=== PATIENT | female | born 2000 | race Caucasian/White ===

== ENCOUNTER 2021-04-29 16:25 | Emergency (ER) | payer BC, SELFPAY ==
--- NOTE | ~2021-04-29 | XR_ITS ---
EXAMINATION: XR chest 2V DATE: 04/29/2021 16:55 INDICATION: Chest pain with exhalation. TECHNIQUE: Frontal and lateral views of the chest were obtained. COMPARISON: None. FINDINGS: There are mild airspace opacities in the lower lung zones. No pleural effusion or pneumotho rax. The heart size is normal. IMPRESSION: 1. Mild airspace opacities in the lower lung zones, consistent with atelectasis versus pneumonia. Reviewed, dictated and finalized at location [facility]
[2021-04-29 16:31] VITALS: BP 153/96; PULSE 88; RESP 20; TEMP 36.8; O2SAT 100
[2021-04-29 16:36] VITALS: BP 153/96; PULSE 88; RESP 20; TEMP 36.8; O2SAT 100
--- NOTE | 2021-04-29 16:55 | ED.URI ---
HPI - URI/Sore Throat General Chief Complaint: Upper Respiratory Infection Stated Complaint: upper respiratory Time Seen by Provider: 04/29/21 16:55 Source: patient and family History of Present Illness HPI Narrative: patient presents 4 weeks post covid and continues to have a cough and is worried that she may have pneumonia. no shortness of breath and no chest pain. Has not tried anything over the counter for her cough. MD elicited complaint: cough Related Data Allergies Allergy/AdvReac Type Severity Reaction Status Date / Time No Known Allergies Allergy Verified 02/17/19 14:18 Review of Systems Review of Systems: CONSTITUTIONAL: Denies chills, or sweats. Reports fever and generalized body aches EYES: Denies visual changes, redness, or discharge. ENT: Denies otalgia. Reports nasal congestion runny nose and sore throat CARDIOVASCULAR: Denies chest pain, palpitations, or edema. RESPIRATORY: Denies dyspnea. Reports occasional cough GASTROINTESTINAL: Denies abdominal pain, nausea, vomiting, or diarrhea. GENITOURINARY: Denies dysuria or hematuria. SKIN: Denies rash or itching. MUSCULOSKELETAL: Denies back pain, joint pain, or myalgia. Reports generalized body aches NEUROLOGIC: Denies headache, numbness, or weakness. PSYCHIATRIC: Denies anxiety or depression. Allergic/Immunologic: Comments: At time of signature, agree with nursing past medical, surgical, social and family history. There is no relevant family history pertinent to the presenting complaint [facility] Past Medical History Medical History (Updated 04/29/21 @ 17:21 by YUMIKO Anne) Strep pharyngitis Exam Narrative: The patient is a well-developed, well-nourished in no acute distress. SKIN: Skin is warm and dry without erythema, swelling or exudate. There is good turgor. No tenting. HEAD: Atraumatic. Normocephalic. No temporal or scalp tenderness. EYES: Moist and bright. Sclera and conjunctivae normal. No discharge. PERRLA. Extraocular motions intact. Gross visual acuity intact. EARS: Pinna is normal shape and contour. Clear external auditory canals. TM pearly osorio with good cone of light, no erythema or suppuration. Bilateral cerumen noted no gross hearing deficit. NOSE: pink, moist mucosa with good air movement. Clear rhinorrhea without nasal flaring. Septum midline. Mouth: moist mucous membranes. THROAT; mild erythema noted to posterior oropharynx with moderate postnasal drainage. Without exudate or ulceration.. Uvula midline. Normal movement of soft palate. NECK: Supple and nontender with full range of motion without discomfort. No meningeal signs. LUNGS: Equal and bilateral breath sounds without wheezes, rales or rhonchi. CHEST: The chest wall is without retractions or use of accessory muscles. HEART: Has a regular rate and rhythm without murmur, gallops, click or rub. ABDOMEN: Soft, nontender with positive active bowel sounds. No rebound tenderness. EXTREMITIES: Without cyanosis, clubbing or edema. Equal 2+ distal pulses and 2 second capillary refill noted. NEUROLOGIC: alert, active, . The patient moves all extremities with normal muscle strength. Normal muscle tone is noted. Normal coordination is noted. NO focal neurological findings noted. Course Course Level of Care: Express Care Visit Vital Signs Vital signs: Vital Signs Temperature 36.8 C 04/29/21 16:31 Pulse Rate 88 04/29/21 16:31 Respiratory Rate 20 04/29/21 16:31 Blood Pressure 153/96 H 04/29/21 16:31 Pulse Oximetry 100 04/29/21 16:31 Temperature 36.8 C 04/29/21 16:36 Pulse Rate 88 04/29/21 16:36 Respiratory Rate 20 04/29/21 16:36 Blood Pressure 153/96 H 04/29/21 16:36 Pulse Oximetry 100 04/29/21 16:36 Addressed elevated BP today. Today's blood pressure higher than recommended range. Discussed importance of follow -up with PCP and possible skilled nursing effects/cardiovascular events related to HTN. Currently patient denies headache, dizziness, vision changes,
== END 2021-04-29 17:24 | disposition home or self-care (01) ==
PROVIDERS: Emergency Provider Nurse Practitioner Family
DX: J06.9 Acute upper respiratory infection, unspecified (principal); R05.9 Cough, unspecified; J18.9 Pneumonia, unspecified organism; Z86.16 Personal history of COVID-19
CPT/HCPCS: 71046; 99213; G0463

== ENCOUNTER 2021-06-01 17:34 | Emergency (ER) | payer BC, SELFPAY ==
[2021-06-01 17:39] VITALS: BP 143/85; PULSE 100; RESP 16; TEMP 36.8; O2SAT 98
--- NOTE | 2021-06-01 17:47 | ED.URI ---
HPI - URI/Sore Throat General Chief Complaint: Upper Respiratory Infection Stated Complaint: Sore Throat Time Seen by Provider: 06/01/21 17:56 Source: patient and RN notes reviewed Mode of arrival: ambulatory Limitations: no limitations History of Present Illness HPI Narrative: 21-year-old female presents concern for sore throat and painful swallowing that started 2 days ago. Reports some mild abdominal discomfort and headache. Reports her son tested positive for strep throat earlier this week. She denies vomiting, diarrhea, fever, nausea, cough. Reports nasal congestion and rhinorrhea. MD elicited complaint: cough and sore throat Related Data Allergies Allergy/AdvReac Type Severity Reaction Status Date / Time No Known Allergies Allergy Verified 06/01/21 17:59 Review of Systems Review of Systems: CONSTITUTIONAL: Denies malaise, chills, sweats, or fever. EYES: Denies visual changes, redness, or discharge. ENT: Reports rhinorrhea, congestion, sore throat. Denies sinus pain, otalgia CARDIOVASCULAR: Denies chest pain, palpitations, or edema. RESPIRATORY: Reports cough. Denies dyspnea. GASTROINTESTINAL: Denies nausea, vomiting, diarrhea SKIN: Denies rash or itching. MUSCULOSKELETAL: Denies myalgia. NEUROLOGIC: Reports headache. All systems reviewed & are unremarkable except as noted in HPI and below PMFSH Past Medical History Medical History (Updated 06/01/21 @ 18:14 by Sally Spring NP) Strep pharyngitis Comments At time of signature, agree with nursing past medical, surgical, social and family history. There is no relevant family history pertinent to the presenting complaint Exam Narrative: GENERAL: Well-appearing, well-nourished, and in no acute distress. HEAD: Normocephalic EYES: PERRLA, conjunctivae clear ENT: Nares clear, clear discharge. Mucous membranes moist. TM pearly couch with dull light reflex bilaterally; no tragal tenderness. Oropharynx erythematous without lesions. Tonsils enlarged and without exudate, no drooling, no hoarseness, no trismus, uvula midline. NECK: Supple. No lymphadenopathy CHEST: Clear to auscultation, breath sounds equal. No wheezing, rhonchi, rales, or stridor. No respiratory distress, speaks in full sentences. HEART: Regular rate and rhythm. No murmur heard. SKIN: Warm, dry, no rash. NEURO: Alert and oriented x3. PSYCH: Normal mood and affect Course Course Emergency Course: Patient is aware of diagnosis, understands and agrees to treatment plan. Anticipatory guidance given. Patient agrees to follow-up as directed and is aware of reasons to seek care at the emergency department. Portions of this record may have been created with voice recognition software Level of Care: Express Care Visit Vital Signs Vital signs: Vital Signs Temperature 98.2 F 06/01/21 17:39 Pulse Rate 100 06/01/21 17:39 Respiratory Rate 16 06/01/21 17:39 Blood Pressure 143/85 H 06/01/21 17:39 Pulse Oximetry 98 06/01/21 17:39 Temperature 98.2 F 06/01/21 17:39 Pulse Rate 100 06/01/21 17:39 Respiratory Rate 16 06/01/21 17:39 Blood Pressure 143/85 H 06/01/21 17:39 Pulse Oximetry 98 06/01/21 17:39 Reviewed. Patient has been instructed to follow up with her primary care provider within the next week regarding her elevated blood pressure today. MDM - URI/Sore Throat MDM Narrative Medical decision making narrative: Differential diagnosis considered: Andersen virus, strep pharyngitis, allergic rhinitis, upper respiratory tract infection, sinusitis, rhinosinusitis, nasopharyngitis. viral pharyngitis, otitis media, otitis externa, pneumonia, bronchitis, viral cough syndrome, viral syndrome, and influenza. Exam findings show no acute concerns or changes; patient is non-toxic appearing and is in no distress. Patient is appropriate for outpatient treatment and follow-up. Lab Data Attestation: I reviewed the patient's lab results. Critical Care Time Critical Care Time Critical Care Time:
== END 2021-06-01 18:18 | disposition home or self-care (01) ==
PROVIDERS: Emergency Provider Nurse Practitioner
DX: J03.90 Acute tonsillitis, unspecified (principal); Z20.818 Contact with and (suspected) exposure to other bacterial communicable diseases
CPT/HCPCS: 87081; 87880; 99213; G0463

== ENCOUNTER 2021-12-04 15:53 | Emergency (ER) | payer BC, SELFPAY ==
[2021-12-04 15:59] VITALS: BP 150/81; PULSE 73; RESP 16; TEMP 36.6; O2SAT 100
--- NOTE | 2021-12-04 16:06 | ED.NAVMDI ---
HPI - Nausea/Vomiting/Diarrhea General Chief complaint: Abdominal Pain Stated complaint: cramping and diarrhea Time Seen by Provider: 12/04/21 15:55 Source: patient Mode of arrival: ambulatory Limitations: no limitations History of Present Illness HPI Narrative: Ms. Koroma is a 21-year-old female patient presenting to the clinic today with complaints of abdominal cramping and diarrhea 2-1/2 weeks. She reports that she has had only 1 diarrheal stool this morning. She has intermittent abdominal cramping that only lasts approximately 3 minutes that comes and goes in waves. She also is reporting some nausea without vomiting. Denies any blood being in her stool. Denies any fever or chills. Last menstrual period was October 19 and she missed her period last month. She is concerned that she may be . Last sexual intercourse was November 01 per patient. Related Data Allergies Allergy/AdvReac Type Severity Reaction Status Date / Time No Known Allergies Allergy Verified 12/04/21 16:11 Review of Systems Review of Systems: Pertinent positives per HPI. Patient denies any fever, chills, rash, headache, visual changes, dizziness, cough, runny nose, sore throat, shortness of breath, chest pain, palpitations, nausea, vomiting, constipation, or any urinary issues. [facility] Past Medical History Medical History Strep pharyngitis Comments At the time of my signature, I reviewed and agree with the nursing past medical, surgical, social, and family history. There is no relevant family history pertinent to the patient complaint. Exam Narrative: General: Well-developed,obese, in no apparent distress. Head: Normocephalic, atraumatic. Cardio: Regular rate and rhythm, s1 and s2 normal, no murmur appreciated. Resp: Clear to auscultation bilaterally, no rhonchi, rales, wheezing or rubs. Abdomen: Soft, pliable, bowel sounds present in all quadrants, non-tender to palpation, no organomegly, no CVAT tenderness. Course Course Emergency Course: Portions of this record may have been created with voice recognition software. Level of Care: Express Care Visit Vital Signs Vital signs: Vital Signs Temperature 36.6 C 12/04/21 15:59 Pulse Rate 73 12/04/21 15:59 Respiratory Rate 16 12/04/21 15:59 Blood Pressure 150/81 H 12/04/21 15:59 Pulse Oximetry 100 12/04/21 15:59 Oxygen Delivery Room Air 12/04/21 15:59 Temperature 36.6 C 12/04/21 15:59 Pulse Rate 73 12/04/21 15:59 Respiratory Rate 16 12/04/21 15:59 Blood Pressure 150/81 H 12/04/21 15:59 Pulse Oximetry 100 12/04/21 15:59 Oxygen Delivery Room Air 12/04/21 15:59 Vital signs reviewed MDM - Nausea/Vomiting/Diarrhea MDM Narrative Medical decision making narrative: At the time of visit patient is resting comfortably on exam table. UA is negative for any infection or blood, UA test negative in the clinic as well. I suspect the patient has acute diarrhea, nausea, and abdominal cramping. She is nontender at this time and nontoxic-appearing. I will give her a prescription for Zofran for nausea and discussed use of Imodium as needed for diarrhea. Supportive measures were discussed with the patient she voiced understanding of discharge instructions and agrees to treatment plan. Differential Diagnosis Differential diagnosis: Likely traveler's diarrhea, gastroenteritis, drug-induced nausea and vomiting, dehydration and other (Acute diarrhea) Lab Data Labs: UCG Bedside Result Negative Reference Range: Negative Urine Bilirubin Negative Reference Range: Negative Urine Ketone Negative Reference Range: Negative Urine Specific [place] 1.030 Reference
== END 2021-12-04 16:35 | disposition home or self-care (01) ==
PROVIDERS: Emergency Provider Nurse Practitioner Family
DX: R10.9 Unspecified abdominal pain (principal); R11.0 Nausea; R19.7 Diarrhea, unspecified
CPT/HCPCS: 81003; 81025; 99213; G0463

== ENCOUNTER 2022-07-14 16:15 | Emergency (ER) | payer BC, SELFPAY ==
[2022-07-14 16:21] VITALS: BP 148/86; PULSE 90; RESP 20; TEMP 36.6; O2SAT 100
--- NOTE | 2022-07-14 16:50 | ED.ABDPAIN ---
HPI - Abdominal Pain General Chief Complaint: Abdominal Pain Stated Complaint: Abdominal Pain Time Seen by Provider: 07/14/22 16:50 Source: patient, RN notes reviewed and old records reviewed Mode of arrival: ambulatory Limitations: no limitations History of Present Illness HPI narrative: 22 year old female presents to [facility] care with complaints of abdominal pain in middle abdomen for the past 2 days and she reports that she has had some diarrhea 3 days ago. Patient reports that she has not had menses since May and is not taking any control. 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 She reports that she is not sleeping well and has been very upset over his . MD elicited complaint: abdominal pain Onset (ago): day(s) (2-3 days) Pain Consistency: intermittent Location: periumbilical Severity: moderate Quality: cramping Migration to: no migration Related Data Allergies Allergy/AdvReac Type Severity Reaction Status Date / Time No Known Allergies Allergy Verified 07/14/22 16:32 Review of Systems Review of Systems: CONSTITUTIONAL: Denies fever, chills, or sweats. ENT: Denies rhinorrhea, congestion, sore throat, or otalgia. CARDIOVASCULAR: Denies chest pain, palpitations, or edema. RESPIRATORY: Denies cough or dyspnea. GASTROINTESTINAL: Reports middle abdominal umbilical region, no nausea, vomiting,positive for diarrhea episode. GENITOURINARY: Denies dysuria or hematuria. SKIN: Denies rash or itching. MUSCULOSKELETAL: Denies back pain, joint pain, or myalgia. NEUROLOGIC: Denies headache, numbness, or weakness.reports emotional stress and not sleeping well. All systems reviewed & are unremarkable except as noted in HPI and below PMFSH Past Medical History Medical History COVID-19 04/23 Strep pharyngitis Social History Social History Smoking status: Never smoker Alcohol intake: current Alcohol use details: rare social Substance use type: does not use Living arrangements: with family Gender identity (if verbalized by the patient): Female Comments At time of signature, agree with nursing past medical, surgical, social and family history. There is no relevant family history pertinent to the presenting complaint Exam Narrative: GENERAL: Well-appearing, well-nourished, obese and in no acute distress. HEAD: Normocephalic, atraumatic. EYES: PERRLA, conjunctivae clear, and EOMI. ENT: Nares clear. Mucous membranes moist. Oropharynx without edema, erythema, or lesions. Tonsils not enlarged and without exudate. NECK: Supple. No lymphadenopathy CHEST: Speaks in full sentences. No respiratory distress.SAO2 100% on room air HEART: Regular rate and rhythm. ABDOMEN: Soft, flat, nondistended. No guarding, rebound tenderness, or rigid. No pulsatilla masses. Bowel sounds present in all four quadrants. No organomegaly. Negative Garcias?s sign.mild periumbilical tenderness, denies any radiation of pain to right lower abdomen, No Supra public tenderness or distension. Good femoral pulses bilaterally. No hernia noted. No scars or surface trauma. SKIN: Warm, dry, no rash. NEURO:? Alert and oriented x3. PSYCH: Normal mood and affect, tearful and anxious Course Course Emergency Course: Patient is aware of diagnosis, understands and agrees to treatment plan.? Anticipatory guidance given.? Patient agrees to follow-up as directed and is aware of reasons to seek care at the emergency department. Portions of this record may have been created with voice recognition software Level of Care: Express Care Visit Vital Signs Vital signs: Vital Signs Temperature 36.6 C 07/14/22 16:21 Pulse Rate 90 07/14/22 16:21 Respiratory Rate 20 07/14/22 16:21 Blood Pr
== END 2022-07-14 17:35 | disposition home or self-care (01) ==
PROVIDERS: Emergency Provider Registered Nurse
DX: N91.2 Amenorrhea, unspecified (principal); F43.9 Reaction to severe stress, unspecified; R10.33 Periumbilical pain
CPT/HCPCS: 81003; 81025; 99213; G0463

== ENCOUNTER 2024-06-06 12:31 | Emergency (ER) | payer OTHER, SELFPAY ==
--- NOTE | ~2024-06-06 | XR_ITS ---
EXAMINATION: XR chest 2V DATE: 06/06/2024 13:17 INDICATION: Chest pain TECHNIQUE: PA and lateral views of the chest were obtained. COMPARISON: Chest radiograph dated 04/29/2021 FINDINGS: The lungs are clear with no focal airspace opacities, pulmonary edema, pleural effusion or pneumothor ax. The cardiomediastinal silhouette is normal. Mild thoracic spondylosis. IMPRESSION: 1. No acute cardiopulmonary disease. Reviewed, dictated and finalized at location B. EM SOFTWARE DEVELOPER
--- NOTE | 2024-06-06 12:32 | ECG_ITS ---
Test Date: 2024-06-06 12:45:32 Measurements Intervals [place] Rate: 79 P: 35 MS: 146 QRS: 30 QRSD: 94 T: 37 QT: 368 QTc: 423 Interpretive Statements SINUS RHYTHM WITH SINUS ARRHYTHMIA NORMAL ELECTROCARDIOGRAM No previous ECG available for comparison Electronically Signed On 06-07-2024 15:23:04 [employer]OGEN [employer] by Mahamed De La Rosa M.D.
[2024-06-06 12:34] VITALS: BP 141/84; PULSE 76; RESP 19; TEMP 36.9; O2SAT 98
--- OUTSIDE RECORDS SUMMARY | 2024-06-06 12:51 | XMS_ITS | Data Portability ---
Author Organization [facility] [place] Address [address] [place] [address] [place] [address] Assessment Encounter Date Assessment Date Assessment LastModified by Organization Details LastModified Time 04/04/2024 04/04/2024 Patient is ___weeks . Discussed plan. Not available 04/04/2024 16:25:43 04/30/2024 04/30/2024 Patient is ___weeks . Discussed plan. Not available 04/30/2024 17:23:15 Plan of Treatment Reminders Order Date Submit Date Provider Last Modified By Organization Details Last Modified Time Details Appointments U/S OB GROWTH 2024 03:00P M ULTRASOUND Not available Not available Not available Lab None recorde d. Referral None recorde d. Procedures None recorde d. Surgeries None recorde d. Imaging US, obstetr ic, 2nd or 3rd trimest er 2024 025 [email or web address] [place], [address], [place], [address], 05/06/2024 23:03:15 US, obstetr ic, limited 2023 024 [email or web address] [place], [facility] [address], [place], [address], 03/10/2024 21:11:42 Medication Orders None recorde d. Patient TargetsNo targets recorded. Patient InstructionsNo instructions recorded. Reason for Referral None Reported. Results Created Date Observation Date Name Description Value Unit Range Abnormal Flag Note LastModifiedBy Organization Detail LastModifiedTime 03/10/20 24 03/10/2024 [UNIT Y] ANEUP LOIDY NIPT fraction 4.0% normal Not Available [facility] [address], [place], [address], 03/10/2024 14:56:12 03/10/20 24 03/10/2024 [UNIT Y] ANEUP LOIDY NIPT sex chromosome aneuploidy NOT DETECT ED normal Not Available [facility] [address], [place], [address], 03/10/2024 14:56:12 03/10/20 24 03/10/2024 [UNIT Y] ANEUP LOIDY NIPT monosomy X LOW RISK <1 in 10,000 normal Not Available [facility] [address], [place], [address], 03/10/2024 14:56:12 03/10/20 24 03/10/2024 [UNIT Y] ANEUP LOIDY NIPT trisomy 13 LOW RISK <1 in 10,000 normal Not Available [facility] [address], [place], [address], 03/10/2024 14:56:12 03/10/20 24 03/10/2024 [UNIT Y] ANEUP LOIDY NIPT trisomy 18 LOW RISK <1 in 10,000 normal Not Available [facility] [address], [place], [address], 03/10/2024 14:56:12 03/10/20 24 03/10/2024 [UNIT Y] ANEUP LOIDY NIPT trisomy 21 LOW RISK <1 in 10,000 normal Not Available [facility] [address], [place], [address], 03/10/2024 14:56:12 03/10/20 24 03/10/2024 [UNIT Y] ANEUP LOIDY NIPT sex MALE normal Not Available [facility] [address], [place], [address], 03/10/2024 14:56:12 03/10/20 24 03/10/2024 [UNIT Y] ANEUP LOIDY NIPT gestation SINGLE TON normal Not Available [facility] [address], [place], [address], 03/10/2024 14:56:12 03/10/20 24 03/10/2024 [UNIT Y] ANEUP LOIDY NIPT for detailed report, see pdf See PDF normal Not Available [facility] [address], [place], [address], 03/10/2024 14:56:12 03/16/20 24 03/16/2024 [UNIT Y] LANA Mcguire sickle cell disease/beta -thalassemia /hemoglobino pathies carrier screen NEGATI VE normal Not Available [facility] [address], [place], [address], 03/16/2024 10:52:21 03/16/20 24 03/16/2024 [UNIT Y] LANA Mcguire alpha-thalas semia carrier screen NEGATI VE normal Not Available [facility] [address], [place], [address], 03/16/2024 10:52:21 03/16/20 24 03/16/2024 [UNIT Y] LANA Mcguire cystic fibrosis carrier screen NEGATI VE normal Not Available [facility] [address], [place], [address], 03/16/2024 10:52:21 03/16/20 24 03/16/2024 [UNIT Y] LANA Mcguire spinal muscular atrophy carrier screen NEGATI VE 2 SMN1 copies , SNP not presen t normal Not Available [facility] [address], [place], [address], 03/16/2024 10:52:21 03/16/20 24 03/16/2024 [UNIT Y] LANA Mcguire for detailed report, see pdf See PDF normal Not Available [facility] [address], [place], [address], 03/16/2024 10:52:21 03/05/20 24 03/05/2024 CBC W/DIF F WBC 9.1 10'3/ uL 3.5-10 .5 Not Available [facility] (Lab) [address], [place], [address], 03/06/2024 13:28:07 03/05/20 24 03/05/2024 CBC W/DIF F RBC 5.09 10'6/ uL (based on docume nted legal sex) 3.80-5 .20 Not Available [facility] (Lab) [address], [place], [address], 03/06/2024 13:28:07 03/05/20 24 03/05/2024 CBC W/DIF F HGB 12.8 g/dL (based on docume nted legal sex) 11.6-1 5.4 Not Available [facility] (Lab) [address], [place], [address], 03/06/2024 13:28:07 03/05/20 24 03/05/2024 CBC W/DIF F HCT 39.5 % (based on docume nted legal sex) 34.0-4 5.0 Not Available [facility] (Lab) [address] [place], [address], 03/06/2024 13:28:07 03/05/20 24 03/05/2024 CBC W/DIF F MCV 77.6 fL 80.0-9 9.0 low Not Available [facility] (Lab) [address] [place], [address], 03/06/2024 13:28:07 03/05/20 24 03/05/2024 CBC W/DIF F MCH 25.1 pg 27.0-3 4.0 low Not Available [facility] (Lab) [address] [place], [address], 03/06/2024 13:28:07 03/05/20 24 03/05/2024 CBC W/DIF F MCHC 32.4 g/dL 32.0-3 5.5 Not Available [facility] (Lab) [address], [place], [address], 03/06/2024 13:28:07 03/05/20 24 03/05/2024 CBC W/DIF F RDW 15.0 % 11.0-1 5.0 Not Available [facility] (Lab) [address] [facility], [place], [address], 03/06/2024 13:28:07 03/05/20 24 03/05/2024 CBC W/DIF F plt 241 10'3/ uL 150-40 0 Not Available [facility] (Lab) [address] [facility], [place], [address], 03/06/2024 13:28:07 03/05/20 24 03/05/2024 CBC W/DIF F MPV 12.4 fL 8.8-12 .1 high Not Available [facility] (Lab) [address], [place], [address], 03/06/2024 13:28:07 03/05/20 24 03/05/2024 CBC W/DIF F NRBC's 0.0 % 0.0 Not Available [facility] (Lab) [address] [facility], [place], [address], 03/06/2024 13:28:07 03/05/20 24 03/05/2024 CBC W/DIF F absolute NRBCs 0.0 10'3/ uL no refere nce range establ ished Not Available [facility] (Lab) [address] [facility], [place], [address], 03/06/2024 13:28:07 03/05/20 24 03/05/2024 CBC W/DIF F neutrophils 69.1 % 34.0-7 3.0 Not Available [facility] (Lab) [address] [facility], [place], [address], 03/06/2024 13:28:07 03/05/20 24 03/05/2024 CBC W/DIF F lymphocytes 24.2 % 15.0-5 0.0 Not Available [facility] (Lab) [address] [facility], [place], [address], 03/06/2024 13:28:07 03/05/20 24 03/05/2024 CBC W/DIF F monocytes 4.8 % 1.0-15 .0 Not Available [facility] (Lab) [address] [facility], [place], [address], 03/06/2024 13:28:07 03/05/20 24 03/05/2024 CBC W/DIF F eosinophils 1.3 % 0.0-8. 0 Not Available [facility] (Lab) [address] [facility], [place], [address], 03/06/2024 13:28:07 03/05/20 24 03/05/2024 CBC W/DIF F basophils 0.4 % 0.0-2. 0 Not Available [facility] (Lab) [address] [facility], [place], [address], 03/06/2024 13:28:07 03/05/20 24 03/05/2024 CBC W/DIF F immature granulocytes 0.2 % no define d refere nce range Not Available [facility] (Lab) [address] [facility], [place], [address], 03/06/2024 13:28:07 03/05/20 24 03/05/2024 CBC W/DIF F absolute neutrophils 6.3 10'3/ uL 1.5-8. 0 Not Available [facility] (Lab) [address] [place], [address], 03/06/2024 13:28:07 03/05/20 24 03/05/2024 CBC W/DIF F absolute lymphocytes 2.2 10'3/ uL 1.0-4. 0 Not Available [facility] (Lab) [address] [facility], [place], [address], 03/06/2024 13:28:07 03/05/20 24 03/05/2024 CBC W/DIF F absolute monocytes 0.4 10'3/ uL 0.2-1. 0 Not Available [facility] (Lab) [address] [facility], [place], [address], 03/06/2024 13:28:07 03/05/20 24 03/05/2024 CBC W/DIF F absolute eosinophils 0.1 10'3/ uL 0.0-0. 6 Not Available [facility] (Lab) [address] [facility], [place], [address], 03/06/2024 13:28:07 03/05/20 24 03/05/2024 CBC W/DIF F absolute basophils 0.0 10'3/ uL 0.0-0. 3 Not Available [facility] (Lab) [address] [facility], [place], [address], 03/06/2024 13:28:07 03/05/20 24 03/05/2024 CBC W/DIF F absolute immature granulocytes 0.0 10'3/ uL 0.00-0 .10 2023 3:05 AM: P indic ates parti al resul ts on a panel have been relea sed. Addit ional resul ts will follo w. 2023 3:05 AM: This resul t has been final verif ied. No addit ional or loredo ed resul ts are expec valerie. Not Available [facility] (Lab) [address] [facility], [place], [address], 03/06/2024 13:28:07 03/05/20 24 03/05/2024 HEMOG LOBIN A1C hemoglobin A1C 5.6 % 0-5.6 The Ameri can [employer] [facility] [employer] i[employer] n recom mends that a prima ry goal of thera py shoul d be a HBA1C of < 7% and that physi cians charlie d reeva luate the treat ment regim en in patie nts with HBA1C value s consi stent ly > 8%. <5.7% Odalys l 5.7 - 6.4% Incre ased risk for diabe brinda >=6.5 % Diagn ostic of diabe brinda <7.0% Goal of thera py >8.0% Actio n sugge sted Not Available [facility] (Lab) [address] [facility], [place], [address], 03/06/2024 13:28:08 03/05/20 24 03/05/2024 TYPE/ RH/SC REEN ABO/Rh type O POS Not Available [facility] (Lab) [address] [facility], [place], [address], 03/06/2024 13:28:09 03/05/20 24 03/05/2024 TYPE/ RH/SC REEN antibody screen NEG Not Available [facility] (Lab) [address] [facility], [place], [address], 03/06/2024 13:28:09 03/05/20 24 03/05/2024 TYPE/ RH/SC REEN exp date 2023 23:59 Not Available [facility] (Lab) [address] [place], [address], 03/06/2024 13:28:09 03/05/20 24 03/05/2024 HEPAT ITIS C ANTIB ASHLEY SCREE N, REFLE X TO CONFI RMATI ON hepatitis C antibody Non-re active non-re active Antib odies to HCV Not Detec valerie, does not exclu de the possi bilit y of expos ure to HCV. Not Available [facility] (Lab) [address] , [place], [address], 03/06/2024 13:28:09 03/05/20 24 03/05/2024 HEPAT ITIS B SURFA CE ANTIG EN hepatitis B surface antigen Non-re active non-re active This assay was perfo rmed using [employer] ratio n reage nts and test kits. Value s obtai jonathan with other assay metho ds or kits canno t be used inter loredo eably . Not Available [facility] (Lab) [address] [facility], [place], [address], 03/06/2024 13:28:10 03/05/20 24 03/05/2024 HIV 1/2 ANTIG EN/AN TIBOD Y, REFLE X CONFI RMATI ON HIV antigen/anti body Nonrea ctive nonrea ctive HIV-1 antig en and HIV-1 /HIV- 2 antib odies were not detec valerie. No labor atory evide nce of HIV infec tion. Not Available [facility] (Lab) [address] [facility], [place], [address], 03/06/2024 13:28:10 03/05/20 24 03/05/2024 RPR SCREE N, REFLE X TITER /CONF IRMAT ION RPR screen Nonrea ctive nonrea ctive Not Available [facility] (Lab) [address] [facility], [place], [address], 03/06/2024 13:28:11 03/05/20 24 03/05/2024 CT/GC AND TRICH OMONA S VAGIN BRENDA (RRNA ), URINE chlamydia trachomatis, PCR Negati ve negati ve Not Available [facility] (Lab) [address] [facility], [place], [address], 03/07/2024 03:06:15 03/05/20 24 03/05/2024 CT/GC AND TRICH OMONA S VAGIN BRENDA (RRNA ), URINE neisseria gonorrhoeae, PCR Negati ve negati ve Not Available [facility] (Lab) [address] [facility], [place], [address], 03/07/2024 03:06:15 03/05/20 24 03/05/2024 CT/GC AND TRICH OMONA S VAGIN BRENDA (RRNA ), URINE trichomonas vaginalis ribosomal RNA (rrna) Positi ve negati ve abnormal Not Available [facility] (Lab) [address] [facility], [place], [address], 03/07/2024 03:06:15 03/05/20 24 03/05/2024 CULTU RE: URINE result report SEE RESULT S BELOW Test: Cultu re: Urine Speci men Sourc e: Urine - Clean Catch Speci men Type: Urine Speci men Date: 2023 1734 Resul t Date: 2023 0201 Resul t Statu s: Final resul t Abnor mal: No Resul ting Lab: [facility] [address] [facility] [address] Tel: CULTU RE ----- ----- ----- --- Cultu re resul t (>=3 organ isms prese nt) indic ates possi ble conta minat ion. Repea t cultu re if sympt oms indic ate. Not Available [facility] (Lab) [address] [facility], [place], [address], 03/07/2024 03:06:15 03/05/20 24 03/05/2024 drug scree n, urine Amphetamines : negati ve Not Available [place] [address], [place], [address], 03/05/2024 18:03:01 03/05/20 24 03/05/2024 drug scree n, urine Cannabinoids : negati ve Not Available [place] [address], [place], [address], 03/05/2024 18:03:01 03/05/20 24 03/05/2024 drug scree n, urine Cocaine: negati ve Not Available [place] [address], [place], [address], 03/05/2024 18:03:01 03/05/20 24 03/05/2024 drug scree n, urine Opiates: negati ve Not Available [place] [address], [place], [address], 03/05/2024 18:03:01 03/05/20 24 03/05/2024 drug scree n, urine Phenocyclidi ne: negati ve Not Available [place] [address], [place], [address], 03/05/2024 18:03:01 03/05/20 24 03/05/2024 drug scree n, urine Barbiturates : negati ve Not Available [place] [address], [place], [address], 03/05/2024 18:03:01 03/05/20 24 03/05/2024 drug scree n, urine Benzodiazepi allison: negati ve Not Available [place] [address], [place], [address], 03/05/2024 18:03:01 03/05/20 24 03/05/2024 drug scree n, urine Ethanol: negati ve Not Available [place] [address], [place], [address], 03/05/2024 18:03:01 03/05/20 24 03/05/2024 drug scree n, urine Hallucinogen s: negati ve Not Available [place] [address], [place], [address], 03/05/2024 18:03:01 03/05/20 24 03/05/2024 drug scree n, urine Inhalants: negati ve Not Available [place] [address], [place], [address], 03/05/2024 18:03:01 03/05/20 24 03/05/2024 drug scree n, urine Anabolic Steroids: negati ve Not Available [place] [address], [place], [address], 03/05/2024 18:03:01 03/05/20 24 03/05/2024 drug scree n, urine Other: negati ve Not Available [place] [address], [place], [address], 03/05/2024 18:03:01 04/30/19 25 04/30/2024 CT/GC AND TRICH OMONA S VAGIN BRENDA (RRNA ), URINE chlamydia trachomatis, PCR Negati ve negati ve Not Available [facility] (Lab) [address] [facility], [place], [address], 05/01/2024 16:26:42 04/30/19 25 04/30/2024 CT/GC AND TRICH OMONA S VAGIN BRENDA (RRNA ), URINE neisseria gonorrhoeae, PCR Negati ve negati ve Not Available [facility] (Lab) [address], [place], [address], 05/01/2024 16:26:42 04/30/19 25 04/30/2024 CT/GC AND TRICH OMONA S VAGIN BRENDA (RRNA ), URINE trichomonas vaginalis ribosomal RNA (rrna) Negati ve negati ve Not Available [facility] (Lab) [address], [place], [address], 05/01/2024 16:26:42 06/04/19 25 06/03/2024 GTT - GESTA JUNG L BHANU Mcguire, ACOG OB glucose, 1 hour screen 90 mg/dL 70-135 Not Available [facility] (Lab) [address], [place], [address], 06/04/2024 05:07:20 03/05/20 24 03/05/2024 US, obste tric, nucha l trans lucen cy No observ ation record ed. [facility] [address], [place], [address], 03/05/2024 18:27:11 03/05/20 24 03/05/2024 US, obste tric, follo w-up No observ ation record ed. [address], [place], [address], 03/06/2024 18:38:27 03/10/20 24 03/10/2024 US, obste tric, limit ed No observ ation record ed. [email or web address] [place] [address], [place], [address], 03/10/2024 18:06:51 03/10/20 24 03/10/2024 US, obste tric, limit ed No observ ation record ed. [email or web address] [address], [place], [address], 03/10/2024 21:10:18 05/06/19 25 05/06/2024 US, obste tric, 2nd or 3rd trime ster No observ ation record ed. [email or web address] [place] [address], [place], [address], 05/06/2024 18:10:58 05/06/19 25 05/06/2024 US, obste tric, follo w-up No observ ation record ed. [address], [place], [address], 05/14/2024 15:28:21 Result Notes None recorded. Problems Name Problem SNOMED Code Status Onset Date Resolution Date Notes Provider Name and Address Organization Details Recorded Time 60959186 Active 2023 La Nena luis, [facility] 4 13:44:48 Infection by Trichomon as 81297818 Active 2023 [place] Flagyl sent 03/07 FORTINO 6wks Hailey luis [facility] 4 10:06:38 Infection by Trichomon as 31147242 Active 2023 [place] Flagyl sent 03/[address] [facility] 4 10:06:38 Obesity 818643822 Active BMI-55 bASA testing at 34wks Hailey [address] [facility] 5 07:25:56 Family history of pulmonary embolism 889009366 Active pts mother Sloane Camryn Brennan CNM [address], [place], [address], [place] [facility] 4 13:26:48 Notes:Encounter for antenata l screening of mother Recorded Elsewhere: No Location: [facility] Source: EHR Chronic: N Practice ID: [id number] Billable Time: 08:15:00 AM Encounter for screening of mother Practice ID: [id number] Encounter for screening of mother Recorded Elsewhere: No Location: [facility] Source: EHR Chronic: N Practice ID: [id number] Billable Time: 02:30:00 PM Encounter for screening of mother Practice ID: [id number] Problem Notes None recorded. Procedures Surgical History Date Name Laterality Status Provider Name and Address Organization Details Recorded Time 12/06/2023 Date of Last Pap Smear completed La Nena Oreilly [facility] 03/06/2024 13:39:10 Imaging Results Imaging Date Name Status LastModified by Organization Details LastModified Time 03/05/2024 US, obstetric, nuchal translucency completed [email or web address] [place] [address], [place], [address], 03/05/2024 18:27:11 03/05/2024 US, obstetric, follow-up completed [email or web address] Smith [address], [place], [address], 03/06/2024 18:38:27 03/10/2024 US, obstetric, limited completed [email or web address] [place] [address] [address], [place], [address], 03/10/2024 18:06:51 03/10/2024 US, obstetric, limited completed [email or web address] [address], [place], [address], 03/10/2024 21:10:18 05/06/2024 US, obstetric, 2nd or 3rd trimester completed [email or web address] [place] [place], [place], [address], 05/06/2024 18:10:58 05/06/2024 US, obstetric, follow-up completed [email or web address] [address], [place], [address], 05/14/2024 15:28:21 Procedure Notes None recorded. Medical Equipment None Reported. Allergies No known drug allergies Medications Name Sig Start Date Stop Date Status Note LastModified by Organization Details LastModified Time amoxicill in 500 mg capsule TAKE 1 CAPSULE BY MOUTH TWICE DAILY FOR 7 DAYS 04/04 completed Not Available Not Available Not Available Diflucan 150 mg tablet Take 1 tablet every day by oral route as directed for 1 day. 2024 active Not Available Not Available Not Avai lable topiramat e 25 mg tablet TAKE 1 TABLET BY MOUTH DAILY 04/04 completed Not Available Not Available Not Available metronida zole 500 mg tablet TAKE 1 TABLET BY MOUTH TWICE DAILY FOR 7 DAYS 04/04 completed Not Available Not Available Not Available omeprazol e 20 mg capsule,d elayed release TAKE 1 CAPSULE BY MOUTH EVERY DAY 30 MINUTES BEFORE BREAKFAS T 04/04 completed Not Available Not Available Not Available Prozac 10 mg capsule take 1 capsule by oral route every day 03/06 completed Prescrib dandre Watson e: No Locat ion: Marian barrios [facility] Jorge odify By: karla youngblood DateTime : 06/16/19 18 02:15:00 PM Not Available Not Available Not Available ondansetr on 4 mg disintegr ating tablet DISSOLVE 1 TABLET ON THE TONGUE EVERY DAY 04/04 completed Not Available Not Available Not Available Loestrin Fe 1.5/30 (28-Day) 1.5 mg-30 mcg (21)/75 mg (7) tablet take 1 tablet by oral route every day 06/01 completed Prescrib dandre Watson e: No Locat ion: Marian barrios [facility] Jorge kenrick By: [email or web address] Barrios [email or web address] DateTime : 04/27/19 02:15:00 PM Not Available Not Available Not Available amoxicill in 875 mg-potass ium clavulana te 125 mg tablet TAKE 1 TABLET BY MOUTH TWICE DAILY 04/04 completed Not Available Not Available Not Available neomycin- polymyxin -hydrocor t 3.5 mg-10,000 unit/mL-1 % ear drops,may p SHAKE LIQUID AND INSTILL 2 DROPS IN BOTH EARS FOUR TIMES DAILY 04/04 completed Not Available Not Available Not Available azithromy aaron 500 mg tablet TAKE 2 TABLETS BY MOUTH 1 TIME FOR 1 DAY 04/04 completed Not Available Not Available Not Available active Not Available Not Avai lable Not Available Poppy 0.25 mg-35 mcg tablet TAKE 1 TABLET BY MOUTH DAILY 04/04 completed Not Available Not Available Not Available Vitals Date Recorded Body height Body mass index (BMI) Body weight Systolic blood pressure Diastolic blood pressure Provider Name and Address Organization Details Last Updated DateTime 04/04/2024 170.18 cm 56.4 kg/m2 709816.2 532 g 138 mm[Hg] 86 mm[Hg] [facility] 16:26:14 Date Recorded Body weight Systolic blood pressure Diastolic blood pressure Provider Name and Address Organization Details Last Updated DateTime 04/30/2024 493815.514 24 g 148 mm[Hg] 78 mm[Hg] [facility] 04/30/2024 17:24:18 Date Recorded Body height Body mass index (BMI) Body weight Systolic blood pressure Diastolic blood pressure Provider Name and Address Organization Details Last Updated DateTime 05/27/2024 170.18 cm 54.7 kg/m2 886980.7 3713 g 108 mm[Hg] 63 mm[Hg] Ping Lomas [facility] 17:03:04 Social History Question Answer Notes LastModified by Organizat ion Details LastModified Time Tobacco Smoking Status Former Smoker La Nena Oreilly [facility] 03/06/2024 13:42:10 What Is Your Level Of Alcohol Consumption? None [email or web address] Information not available 03/06/2024 If You Are , What Was Your Level Of Alcohol Consumption Prior To ? Occasional [email or web address] Information not available 03/06/2024 Are You Blind Or Do You Have Difficulty Seeing? No [email or web address] Information not available 03/06/2024 What Is Your Level Of Caffeine Consumption? Occasional [email or web address] Information not available 03/06/2024 In The 14 Days Before Symptom Onset, Have You Had Close Contact With A Laboratory-confir med COVID-19 While That Case Was Ill? No [email or web address] Information not available 03/06/2024 In The 14 Days Before Symptom Onset, Have You Had Close Contact With A Person Who Is Under Investigation For COVID-19 While That Person Was Ill? No Information not available 03/06/2024 Have You Been To An Area Known To Be High Risk For COVID-19? No [email or web address] Information not available 03/06/2024 Are You Deaf Or Do You Have Serious Difficulty Hearing? No [email or web address] Information not available 03/06/2024 What Type Of Diet Are You Following? REGULAR [email or web address] Information not available 03/06/2024 Do You Use Your Seat Belt Or Car Seat Routinely? Yes Information not available 03/06/2024 Do You Have Smoke And Carbon Monoxide Detectors In Your Home? Yes [email or web address] Information not available 03/06/2024 Do You Feel Stressed (tense, Restless, Nervous, Or Anxious, Or Unable To Sleep At Night)? [id number] [email or web address] Information not available 03/06/2024 Do You Use Any Illicit Or Recreational Drugs? No [email or web address] Information not available 03/06/2024 Do You Use Sunscreen Routinely? Yes Information not available 03/06/2024 Has Tobacco Cessation Counseling Been Provided? Yes [email or web address] Information not available 03/06/2024 On What Date Was Tobacco Cessation Counseling Provided? 03/06/2024 [email or web address] Information not available 03/06/2024 Do You Or Have You Ever Used Any Other Forms Of Tobacco Or Nicotine? No [email or web address] Information not available 03/06/2024 Sex: Unknown Functional Status Question Answer Note LastModified by Organizat ion Details LastModified Time Do you have difficulty walking or climbing stairs? No [email or web address] Information not available 03/06/2024 Are you able to walk? YESWOREST [email or web address] Information not available 03/06/2024 Are you able to care for yourself? Yes [email or web address] Information not available 03/06/2024 Do you have difficulty dressing or bathing? No Information not available 03/06/2024 What is your exercise level? Occasional [email or web address] Information not available 03/06/2024 Mental Status None recorded. Family History Relationship Description Onset Age of this Age Resolved Age Notes LastModified by Organization Details LastModified Time Mother Anemia [email or web address] Not available 03/06/2024 13:41:22 Mother Pulmonary embolism [email or web address] Not available 03/06 13:41:42 Notes:Mother: Pulmonary Embo lism, Anemia Medical History Condition Response Allergies (Food, seasonal, environmental ) Y Other N Breast Cancer N Drug/Latex Allergies/Reactions N Blood Transfusion N Dermatologic Disorders N Lung Disease N Defects or Inherited Disease N Breast Problem N Gestational Diabetes N Hematologic disorders N Anesthesia Complications N History of STI Y Deep Vein Thrombosis N Polycystic ovary syndrome N Anxiety Disorder Y Autoimmune disease N Arthritis N Infertility N Polyps N Acid Reflux (GERD) N History of abnormal pap N Cancer N Stroke N Varicosities N Neurologic/Epilepsy N Endometriosis N High Cholesterol N Headaches N Fibromyalgia N Kidney Disease N Heart Problems N Kidney or Bladder Problems N Thyroid Problems N GI Problems N Eating Disorder N Anemia N Art (IVF or FET) N Psychiatric Illness N Ovarian Cancer N Diabetes N Pulmonary (TB, Asthma) N Hepatitis/Liver Disease N No Past Medical History N Eczema N Urinary Tract Infection N Abuse/Domestic Violence N Asthma N Trauma/Violence N Depression/ depression Y Heart Disease N Pre-Eclampsia N Hypertension N Osteoporosis N Thrombophilias N Gynecological History Statement/Question Response Abnormal Pap N Date of Last Mammogram Date of LMP 11/11/2023 Was last menstrual period normal Y STIs/STDs Yes HPV Vaccine N Current Control Method Are cycles usually normal Y Date of Last Colonoscopy Sexually Active? Y Menses Monthly N Date of DEXA bone scan Date of Last Pap Smear 12/06/2023 Sexual Problems? N LMP Approximate Obstetrics History GPAL:G 2 P 1 0 0 1 Type Value Full Term 1 Living 1 Total 2 Past Encounters Encounter ID Performer Location Encounter Start Date Encounter Closed Date Diagnosis/Indication Diagnosis SNOMED-CT Code Diagnosis ICD10 Code Diagnosis Note [id number] Leonor Mora [facility] [address],[place] [address] 03/05/2024 16:31:03 03/05/2024 17:12:49 screening 521894922 Z36.82 Z3A.12 [id number] La Nena Oreilly [facility] [address],[place] [address] 03/05/2024 16:34:38 03/07/2024 11:40:36 screening 817499737 Z36.89 Genetic in vestigation procedure 11364791 Z31.430 Venereal d isease screening 145535590 Z11.3 Gestation period, 12 weeks 11903986 Z3A.12 [id number] [facility] [address],[place] [address] 03/10/2024 17:23:00 03/10/2024 18:05:38 Medical examination for suspected condition 473320531 Z03.72 Z3A.13 [id number] Buddy De Paz MD [place] [address],[place] [address] 04/04/2024 15:44:27 04/04/2024 17:09:55 Routine care 782618812 Z34.90 [id number] Buddy De Paz MD [place] [address],[place] [address] 04/30/2024 16:27:32 05/01/2024 10:32:25 Routine care 196058261 Z34.90 [id number] [facility] [address],[place] [address] 05/06/2024 15:45:17 05/06/2024 17:07:01 screening for malformation 227138419 Z36.3 Z3A.21 [id number] MALIK LANDAVERDE MD [place] [address],[place] [address] 05/27/2024 16:52:36 05/27/2024 17:59:40 Maternal obesity complicating , childbirth and the puerperium, antepartum 5852224372 07 O99.212 Gestation period, 24 weeks 473388114 Z3A.24 Health Concerns Section Related Observation LastModified by Organization Detai ls LastModified Time None Recorded Concern Status LastModified by Organization Details LastModified Time None Recorded Advance Directives Directive None Recorded Payers Encounter Date Sequence Insurance Name Policy Number Policy Pablo Covered Member ID Pablo Member ID Guarantor Name 03/10/2024 1 [place] [id number] Amissa Koroma [id number] Amissa Koroma 04/04/2024 1 [place] [facility] Amissa Koroma [id number] Amissa Koroma 04/30/2024 1 [facility] (HMO) Amissa Koroma [id number] Amissa Koroma 05/06/[address] [facility] (MEDICAID REPLACEMENT - HMO) Amissa Koroma [id number] Amissa Koroma 05/06/2024 1 *SELF PAY* Am cody Koroma 05/27/2024 1 *SELF PAY* Am cody Koroma OBGyn Episode Ob Episode Information Episode Created Date Number of Fetuses Patient Bloodtype Patient rh Status Prepregnancy Weight lbs Domestic Partner Domestic Partner Phone Father Name Family Assessment Worker Status 03/06/20 24 1 O Positive 357 Chilo mcguire Gallagher OPEN Fetus Data First Name Last Name Admitted to NICU Weight (g) Sex Living Outcome Pediatric Complications Fetus ID Race Codes Race Delivery Type [id number] Problems Problem Notes Problem Name Start Date End Date Resolution Snomed Code Not e Family history of pulmonary embolism 176269097 pts mothe r Obesity 110686574 BMI-55bASA testing at 34wks Infection by Trichomonas 03/05/2024 [id number] [place] Flagyl sent 03/07 FORTINO 6wks Justin Calculation Initial Justin Date Initial Exam Date Initial Exam Provider Initial Ultrasound Date Last Menstrual Period Date Ultra Sound Weeks Gestation 09/15/2024 03/06/2024 Sloane Brennan 03/05/2024 11/11/2023 12 Eighteen To Twenty Week Justin Update Ultra Sound Date Fundal Height At Umbil Quickening Date Ultra Sound Latest Weeks Gestation Final Justin Confirmed By Final Justin Confirmed Date Final Justin Date Ultra Sound Latest Days Gestation 0 [email or web address] 04/04/2024 09/16/19 25 0 Pre-abbie Flowsheet Flowsheet Date 03/05/2024 Lucero Score Blood Edema Fundus Height Fundus Units Glucose Ketones Leukocytes Nitrite Labor Signs Protein Cervic Dilation Cervic Effacement Cervic Station neg none none trace Type Weight in lbs Pre/Post Dialysis Refused 357.51128790547 BP Diastolic BP Location Tested BP Systolic BP Type 62 131 Fetus Heart Rate Present Fetus Movement A No Comments Flowsheet Date 03/10/2024 Lucero Score Blood Edema Fundus Height Fundus Units Glucose Ketones Leukocytes Nitrite Labor Signs Protein Cervic Dilation Cervic Effacement Cervic Station Type Weight in lbs Pre/Post Dialysis Refused BP Diastolic BP Location Tested BP Systolic BP Type Fetus Heart Rate Present Fetus Movement Comments Flowsheet Date 04/04/2024 Lucero Score Blood Edema Fundus Height Fundus Units Glucose Ketones Leukocytes Nitrite Labor Signs Protein Cervic Dilation Cervic Effacement Cervic Station Type Weight in lbs Pre/Post Dialysis Refused 360.642825886925 BP Diastolic BP Location Tested BP Systolic BP Type 86 L arm 138 sitting Fetus Heart Rate Present Fetus Movement A No Comments this patient is a 24 year-ol d multiparous female at 16 weeks' gestation who presents for initial care. She has a history of term vaginal births. Her medical, surgical, obstetric history is unremarkable. She is vaccinated. She was given precautions recommendations for . We talked about vaccines in . Talked about care in detail. She is having genetic testing. She had a normal 12 week ultrasound. To begin routine care. Flowsheet Date 04/30/2024 Lucero Score Blood Edema Fundus Height Fundus Units Glucose Ketones Leukocytes Nitrite Labor Signs Protein Cervic Dilation Cervic Effacement Cervic Station Type Weight in lbs Pre/Post Dialysis Refused 352.993358976990 BP Diastolic BP Location Tested BP Systolic BP Type 78 L arm 148 sitting Fetus Heart Rate Present A 134 Fetus Movement A Yes Comments no complaints, no problems, routine care, no contractions, no vaginal bleeding, no loss of fluid, no cramping Flowsheet Date 05/06/2024 Lucero Score Blood Edema Fundus Height Fundus Units Glucose Ketones Leukocytes Nitrite Labor Signs Protein Cervic Dilation Cervic Effacement Cervic Station Type Weight in lbs Pre/Post Dialysis Refused BP Diastolic BP Location Tested BP Systolic BP Type Fetus Heart Rate Present Fetus Movement Comments Flowsheet Date 05/27/2024 Lucero Score Blood Edema Fundus Height Fundus Units Glucose Ketones Leukocytes Nitrite Labor Signs Protein Cervic Dilation Cervic Effacement Cervic Station neg trace Type Weight in lbs Pre/Post Dialysis Refused 349.303589505688 BP Diastolic BP Location Tested BP Systolic BP Type 63 L arm 108 sitting Fetus Heart Rate Present A 145 Fetus Movement A Yes Comments States on Valentines day was getting really nauseous, dizzy, and blurred vision. States is having pressure on chest, tired overall, feels like whole body is shaking. She also had a vagal episode while shopping. [place] better after sitting for a few minutes. Will complete glucose testing next week. Also needs belly band, was previously measured but needs bigger size. Will send new prescription. Menstrual History Last Menstrual Date Menses Monthly On Bcp Conception Prior Menses Frequency Hcg Plus Date Menarche Onset Age 0811/11/2023 Delivery Information Delivery Date Delivery Type Labor Anesthesia Weeks Gestation Incision Type Labor Labor Length Hrs Delivered By Post Complications Tubal Sterilization Discharge Date Comments Discharge Information Feeding Method Contraceptive Method Maternal HG B and HCT Levels Ob Episode Information Episode Created Date Number of Fetuses Patient Bloodtype Patient rh Status Prepregnancy Weight lbs Domestic Partner Domestic Partner Phone Father Name Family Assessment Worker Status 03/06/20 24 1 CLOSED Fetus Data First Name Last Name Admitted to NICU Weight (g) Sex Living Outcome Pediatric Complications Fetus ID Race Codes Race Delivery Type 3430.06 2704 M Full Term [id number] Vaginal Delivery Justin Calculation Initial Justin Date Initial Exam Date Initial Exam Provider Initial Ultrasound Date Last Menstrual Period Date Ultra Sound Weeks Gestation 0 Eighteen To Twenty Week Justin Update Ultra Sound Date Fundal Height At Umbil Quickening Date Ultra Sound Latest Weeks Gestation Final Justin Confirmed By Final Justin Confirmed Date Final Justin Date Ultra Sound Latest Days Gestation 0 0 Menstrual History Last Menstrual Date Menses Monthly On Bcp Conception Prior Menses Frequency Hcg Plus Date Menarche Onset Age Delivery Information Delivery Date Delivery Type Labor Anesthesia Weeks Gestation Incision Type Labor Labor Length Hrs Delivered By Post Complications Tubal Sterilization Discharge Date Comments 6 40 Discharge Information Feeding Method Contraceptive Method Maternal HG B and HCT Levels
--- OUTSIDE RECORDS SUMMARY | 2024-06-06 12:51 | XMS_ITS | Data Portability ---
Author Organization [place] - [facility], Main Office Address [address] [place] [phone] Assessment Encounter Date Assessment Date Assessment LastModified by Organization Details LastModified Time 05/24/2023 05/24/2023 Assessment: Rhinitis KYLIE PLMD Hypoventilation Plan: The following were reviewed and explained to the patient: primary care/referral note General information on sleep disordered breathing, evaluation of sleep disordered breathing, treatment with PAP therapy, and living with PAP therapy were covered. Chapter 1 of educational DVD was shown. PSG is medically necessary to determine the degree of and management of sleep apnea. We discussed with the patient the impact of weight on: Sleep disordered breathing We discussed with the patient the benefit of PAP therapy on: Sleep disordered breathing Rhinitis Educated the patient on sleep hygiene measures. Relaxing rituals to rest easy, understanding foods with positive and negative impact on sleep, creating a peaceful sleep environment, timing of exercise, using herbal sleep aids, and practicing sleep-friendly meditation were covered. To determine how much sleep is needed, the patient will assess where she falls on the spectrum, examine what lifestyle factors such as work schedules and stress are affecting the quality and quantity of sleep. In general, adults need 7-9 hours of sleep. Educated the patient regarding foods that promote sleep. These include but are not limited to cherries, bananas, toast, oatmeal, and warm milk. Educated the patient regarding foods and drinks to avoid before bedtime. These include but are not limited to aged cheese, chocolate, spicy foods, tomato-based sauces, soy, ginseng tea and processed meat. Advocated influenza vaccination annually and pneumonia vaccination in 2062. Advocated weight loss through diet and exercise. Patient's ideal body weight according to height and gender is up to 150 lbs. Encouraged patient to adjust caloric intake to maintain/achieve ideal body weight, emphasizing on fruits, vegetables, whole grains, and fat-free or low-fat products. These include lean meats, poultry, fish, beans, eggs, and nuts and foods that are low in saturated fats, trans-fats, cholesterol, salt (sodium), and glycemic index. Stressed the importance of regular exercise up to the patient's capacity limits. In this case, we recommend 20 min daily walking, 2 days a week of resistance training. Patient to monitor BP daily and bring records to PCP for further management. Follow-up: 1 week after diagnostic sleep study Not available 05/24/2023 10:45:36 08/08/2023 08/08/2023 Assessment: Rhinitis Very severe OSAHS, AHI = 47 PLMD Hypoventilation Plan: The following were reviewed and explained to the patient: [facility] diagnostic sleep study 08/04/23 sleep onset = 2.5 minutes, REM onset = 103.5 minutes, AHI = 47, supine AHI = 71, PLMI = 1 General information on sleep disordered breathing, evaluation of sleep disordered breathing, treatment with PAP therapy, and living with PAP therapy were covered. PSG is medically necessary to determine the management of sleep apnea. We discussed with the patient the impact of weight on: Sleep disordered breathing We discussed with the patient the benefit of PAP therapy on: Sleep disordered breathing Rhinitis Educated the patient on sleep hygiene measures. Relaxing rituals to rest easy, understanding foods with positive and negative impact on sleep, creating a peaceful sleep environment, timing of exercise, using herbal sleep aids, and practicing sleep-friendly meditation were covered. To determine how much sleep is needed, the patient will assess where she falls on the spectrum, examine what lifestyle factors such as work schedules and stress are affecting the quality and quantity of sleep. In general, adults need 7-9 hours of sleep. Educated the patient regarding foods that promote sleep. These include but are not limited to cherries, bananas, toast, oatmeal, and warm milk. Educated the patient regarding foods and drinks to avoid before bedtime. These include but are not limited to aged cheese, chocolate, spicy foods, tomato-based sauces, soy, ginseng tea and processed meat. Advocated influenza vaccination annually and pneumonia vaccination in 2062. Advocated weight loss through diet and exercise. Patient's ideal body weight according to height and gender is up to 150 lbs. Encouraged patient to adjust caloric intake to maintain/achieve ideal body weight, emphasizing on fruits, vegetables, whole grains, and fat-free or low-fat products. These include lean meats, poultry, fish, beans, eggs, and nuts and foods that are low in saturated fats, trans-fats, cholesterol, salt (sodium), and glycemic index. Stressed the importance of regular exercise up to the patient's capacity limits. In this case, we recommend 20 min daily walking, 2 days a week of resistance training. Patient to monitor BP daily and bring records to PCP for further management. Follow-up: 1 week after titration sleep study Not available 08/08/2023 16:00:17 Plan of Treatment Reminders Order Date Submit Date Provider Last Modified By Organization Details Last Modified Time Details Appointments None recorded. Lab None recorded. Referral None recorded. Procedures None recorded. Surgeries None recorded. Imaging polysomnog ant, titration study - approved [id number] 08/09/23-11/06 024 [email or web address] [facility] [place], [address] [place] [address], [address], 4 17:23:53 polysomnog ant, diagnostic , 6 yrs or older - approved [id number] 05/24/23--2023 024 [email or web address] 25 [facility], [address] [place], [address], 4 11:17:42 Medication Orders None recorded. Patient TargetsNo targets recorded. Patient InstructionsNo instructions recorded. Reason for Referral None Reported. Results Created Date Observation Date Name Description Value Unit Range Abnormal Flag Note LastModifiedBy Organization Detail LastModifiedTime 08/07/1908/04/2023 sleep study , diagn ostic (PROC ) No observ ation record ed. BARCODE Not Available 2023 16:53:54 Result Notes None recorded. Problems Name Problem SNOMED Code Status Onset Date Resolution Date Notes Provider Name and Address Organization Details Recorded Time Plantar fasciitis of right foot 7967473173049 9101 Active 2019 Not Available [facility] 3 19:31:01 Sleep apnea 00753425 Active 2023 Duran Burt MD [address] [facility], [address], [place], [address] , [employer] 4 10:45:42 Obstructiv e sleep apnea syndrome 33820382 Active 2023 Duran Burt MD [address], [address], [place], [address] , [employer] 4 15:55:32 Notes:Medical History: Rhini tis Moderate tonsillar hypertrophy Obesity with very severe OSAHS, AHI = 47, 08/04/23 Plantar fasciitis Procedure History: None Occupational History: [employer] Problem Notes None recorded. Procedures Surgical History None recorded. Imaging Results Imaging Date Name Status LastModified by Organiz ation Details LastModified Time 08/04/2023 sleep study, diagnostic (PROC) completed BARCODE Information not available 08/07/2023 16:53:54 Procedure Notes None recorded. Medical Equipment None Reported. Allergies No known drug allergies Medications Name Sig Start Date Stop Date Status Note LastModified by Organization Details LastModified Time amoxicillin 500 mg capsule TAKE 1 CAPSULE BY MOUTH TWICE DAILY 05/24 completed Not Available Not Available Not Available cetirizine 10 mg tablet TAKE 1 TABLET BY MOUTH DAILY 05/24 completed Not Available Not Available Not Available Mobic 7.5 mg tablet TK 1 T PO D PRN 02/15 completed Not Available Not Available Not Available topiramate 25 mg tablet TAKE 1 TABLET BY MOUTH EVERY DAY 05/24 completed Not Available Not Available Not Available Mobic 15 mg tablet Take 1 tablet every day by oral route as needed 05/24 completed Not Available Not Available Not Available lorazepam 0.5 mg tablet TAKE 1 TABLET BY MOUTH TWICE DAILY NEEDED FOR ANXIETY 05/24 completed Not Available Not Available Not Available omeprazole 20 mg capsule,del ayed release TAKE 1 CAPSULE BY MOUTH EVERY DAY 30 MINUTES BEFORE BREAKFAST active Not Available Not Available No t Available ibuprofen 600 mg tablet 04/26 completed Not Available Not Available Not Available methylpredn isolone 4 mg tablets in a dose pack 02/15 completed Not Available Not Available Not Available albuterol sulfate HFA 90 mcg/actuati on aerosol inhaler INHALE 2 TO 4 PUFFS INTO LUNGS EVERY 4 TO 6 HOURS NEEDED 05/24 completed Not Available Not Available Not Available ondansetron 4 mg disintegrat ing tablet DISSOLVE 1 TABLET ON THE TONGUE EVERY DAY active Not Available Not Available No t Available amoxicillin 875 mg-potassiu m clavulanate 125 mg tablet TAKE 1 TABLET BY MOUTH TWICE DAILY 05/24 completed Not Available Not Available Not Available neomycin-po lymyxin-hyd rocort 3.5 mg-10,000 unit/mL-1 % ear drops,susp SHAKE LIQUID AND INSTILL 2 DROPS IN BOTH EARS FOUR TIMES DAILY 05/24 completed Not Available Not Available Not Available Poppy 0.25 mg-35 mcg tablet TAKE 1 TABLET BY MOUTH EVERY DAY 05/24 completed Not Available Not Available Not Available Vitals Date Recorded Body mass index (BMI) Body height Heart rate Body weight Systolic blood pressure Diastolic blood pressure Provider Name and Address Organization Details Last Updated DateTime 1 40 kg/m2 180.34 cm 113 /min 426381. 01 g 120 mm[Hg] 90 mm[Hg] Not Available [employer] 3 19:30:55 Date Recorded Body height Body mass index (BMI) Body weight Body temperature Heart rate Oxygen saturation Oxygen saturation in Arterial blood by Pulse oximetry Systolic blood pressure Diastolic blood pressure Provider Name and Address Organization Details Last Updated DateTime 4 172.72 cm 56.1 kg/m2 235656. 58 g 97.3 [degF] 89 /min 96 % 96 % 126 mm[Hg] 82 mm[Hg] Maya Barakat MA [facility] [employer] 4 10:15:50 Date Recorded Heart rate Respiratory rate Provider N gi and Address Organization Details Last Updated DateTime 05/24/2023 89 /min 15 /min Duran Burt MD [address] [place] [address], [phone], [place] [employer] [facility] [employer] 05/24/2023 10:51:29 Date Recorded Body height Body mass index (BMI) Body weight Heart rate Oxygen saturation Oxygen saturation in Arterial blood by Pulse oximetry Systolic blood pressure Diastolic blood pressure Provider Name and Address Organization Details Last Updated DateTime 4 172.72 cm 56.1 kg/m2 951301. 58 g 83 /min 98 % 98 % 118 mm[Hg] 70 mm[Hg] Jaciel Pacheco CMA [employer] [facility] [employer] 15:42:02 Date Recorded Body temperature Heart rate Respiratory rate Provider Name and Address Organization Details Last Updated DateTime 08/08/2023 97.2 [degF] 83 /min 15 /min Duran Burt MD [address] [facility], [facility] [address], [address], [employer] 08/08/2023 16:03:25 Social History Question Answer Notes LastModified by Organizat ion Details LastModified Time Tobacco Smoking Status Never Smoker TAYLOR Calles, [employer] [facility] [employer] 05/24/2023 10:18:37 What Is Your Level Of Alcohol Consumption? Occasional Information not available 05/24/2023 What Is Your Level Of Caffeine Consumption? Moderate Information not available 05/24/2023 In The 14 Days Before Symptom Onset, Have You Had Close Contact With A Laboratory-confir med COVID-19 While That Case Was Ill? No Information not available 05/24/2023 In The 14 Days Before Symptom Onset, Have You Had Close Contact With A Person Who Is Under Investigation For COVID-19 While That Person Was Ill? No Information not available 05/24/2023 What Type Of Diet Are You Following? REGULAR Information not available 05/24/2023 Which Illicit Or Recreational Drugs Have You Used? Marijuana Information not available 05/24/2023 Do You Have An Electrostatic Air Filter? No Information not available 05/24/2023 Do You Have A Humidifier? No Information not available 05/24/2023 Where [facility] You [facility] Information not available 05/24/2023 Do You Have Moisture Problems In Your Home? No Information not available 05/24/2023 What Was The Date Of Your Most Recent Tobacco Screening? 05/24/2023 Information not available 05/24/2023 Do You Have Any Pets? No Information not available 05/24/2023 Do You Use Your Seat Belt Or Car Seat Routinely? Yes Information not available 05/24/2023 Do You Have Smoke And Carbon Monoxide Detectors In Your Home? Yes Information not available 05/24/2023 Are You Passively Exposed To Smoke? No Information no t available 05/24/2023 Do You Feel Stressed (tense, Restless, Nervous, Or Anxious, Or Unable To Sleep At Night)? [id number] Information not available 05/24/2023 Do You Use Any Illicit Or Recreational Drugs? Yes Rarely Information not available 05/24/2023 Do You Use Sunscreen Routinely? No Information not available 05/24/2023 Have You Recently Traveled Abroad? No Information not available 05/24/2023 Have You Used IV Drugs? No Information not available 05/24/2023 Do You Have Any Dietary Restrictions? No Information not available 05/24/2023 Do You Or Have You Ever Used Any Other Forms Of Tobacco Or Nicotine? No Information not available 05/24/2023 Sex: Unknown Functional Status Question Answer Note LastModified by Organization D etails LastModified Time What is your exercise level? Moderate Information not available 05/24/2023 Mental Status None recorded. Family History Relationship Description Onset Age of this Age Resolved Age Notes LastModified by Organization Details LastModified Time Sister Rhinitis [email or web address] Not available 0 05/24/2023 10:44:21 Medical History No medical history recorded. Gynecological HistoryNo gynecological history recorded. Obstetrics History GPAL:G 0 P 0 0 0 0 Past Encounters Encounter ID Performer Location Encounter Start Date Encounter Closed Date Diagnosis/Indication Diagnosis SNOMED-CT Code Diagnosis ICD10 Code Diagnosis Note [id number] [facility] [place] [address] [place] [address] 07/26/2020 00:00:00 07/26/2020 14:58:30 [id number] Duran Burt MD [facility] Pul[place] [facility] [place] [address] [place] [phone] 05/24/2023 09:48:57 05/31/2023 10:08:03 Sleep apnea 05644881 G47.30 G47.33 G47.36 G47.61 [id number] Duran Burt MD [facility] [address] [phone] 08/08/2023 15:32:09 08/09/2023 09:02:51 Obstructive sleep apnea syndrome 78613229 G47.33 G47.36 G47.61 Health Concerns Section Related Observation LastModified by Organization Detai ls LastModified Time None Recorded Concern Status LastModified by Organization Details LastModified Time None Recorded Advance Directives Directive None Recorded Payers Encounter Date Sequence Insurance Name Policy Number Policy Pablo Covered Member ID Pablo Member ID Guarantor Name 05/24/2023 1 [facility] (MEDICAID REPLACEMENT - O) [id number] Amissa Koroma [id number] Amissa D Koroma 08/08/2023 1 [facility] (MEDICAID REPLACEMENT - HMO) [id number] Amissa Koroma [id number] Amissa D Koroma Notes Date Note Type Note Provider Name and Address Organization Details Recorded Time 05/24/2023 text/html Primary care/Ref erring provider: YUMIKO Hernandez At home, the patient sleeps from 2 pm to 10 pm and wakes up with an alarm. The patient works from 12 am to 8 am. Snoring: moderate, since . Snorting: yes Choking: yes Coughing: yes Gasping: yes Gagging: no Sighing: no Witnessed apnea: yes Twitching or jerking of leg(s), arm(s), body, head: yes Teeth grinding: no Teeth clenching: no Sleeptalking: no Sleepwalking: no Sleep crying: no Bedwetting: no Tongue/lip/gum/cheek biting: no Sleeping with open mouth: yes Sleep paralysis: no Hypnagogic hallucinations: no Hypnopompic hallucinations: no Vivid dreams: yes Difficulty with sleep onset: yes Difficulty with sleep maintenance: yes Sleep interruptions: bodily movements Patient wakes up with: fatigue, xerostomia, sore throat, hoarse voice, headaches Daytime cataplexy: no Morning hypersomnolence: yes Afternoon hypersomnolence: yes Caffeine sources in diet: chocolate 1 candy bar per week, energy drink 1 can of Red Bull per day Associated medical and psychiatric conditions: Congestive heart failure: no Coronary artery disease: no Myocardial infarction: no Hypertension: no Stroke: no Bronchial asthma: no Chronic obstructive pulmonary disease: no Depression: no Bipolar disorder: no Anxiety: no Panic disorder: no Posttraumatic stress disorder: no Attention deficit and hyperactivity disorder: no Obsessive Compulsive disorder: no Schizophrenia: no Schizoaffective disorder: no Personality disorder: no Chronic analgesic use: no Chronic sedative/hypnotic use: no EPWORTH SLEEPINESS SCALE (ESS) CHANCE OF DOZING SCORE 0 = would never doze 1 = slight chance of dozing 2 = moderate chance of dozing 3 = high chance of dozing SITUATION AND CHANCE OF DOZING Sitting and reading - 2 Watching television - 3 Sitting inactive in a public place (e.g. a theater or meeting) - 0 As a passenger in a car for an hour without a break - 3 Lying down to rest in the afternoon when circumstances permit - 3 Sitting and talking to someone - 0 Sitting quietly after lunch without alcohol - 3 In a car, while stopped for a few minutes in the traffic - 0 TOTAL SCORE 14 Subjectively, patient has a moderate chance of dozing. Duran Burt MD [address] [place] [address], [phone], [place] [facility] 05/24/2023 10:51:40 08/08/2023 text/html Primary care/Ref erring provider: YUMIKO Hernandez During the [facility] diagnostic sleep study on 08/04/23, sleep onset = 2.5 minutes, REM onset = 103.5 minutes, AHI = 47, supine AHI = 71, PLMI = 1. At home, the patient sleeps from 2 pm to 10 pm and wakes up with an alarm. The patient works from 12 am to 8 am. Snoring: moderate, since .Snorting: yesChoking: yesCoughing: yesGasping: yesGagging: noSighing: noWitnessed apnea: yesTwitching or jerking of leg(s), arm(s), body, head: yesTeeth grinding: noTeeth clenching: noSleeptalking: noSleepwalking: noSleep crying: noBedwetting: noTongue/lip/gum/cheek biting: noSleeping with open mouth: yesSleep paralysis: noHypnagogic hallucinations: noHypnopompic hallucinations: noVivid dreams: yesDifficulty with sleep onset: yesDifficulty with sleep maintenance: yesSleep interruptions: bodily movementsPatient wakes up with: fatigue, xerostomia, sore throat, hoarse voice, headachesDaytime cataplexy: noMorning hypersomnolence: yesAfternoon hypersomnolence: yesCaffeine sources in diet: chocolate 1 candy bar per week, energy drink 1 can of Red Bull per day Associated medical and psychiatric conditions:Congestive heart failure: noCoronary artery disease: noMyocardial infarction: noHypertension: noStroke: noBronchial asthma: noChronic obstructive pulmonary disease: noDepression: noBipolar disorder: noAnxiety: noPanic disorder: noPosttraumatic stress disorder: noAttention deficit and hyperactivity disorder: noObsessive Compulsive disorder: noSchizophrenia: noSchizoaffective disorder: noPersonality disorder: noChronic analgesic use: noChronic sedative/hypnotic use: no EPWORTH SLEEPINESS SCALE (ESS) CHANCE OF DOZING SCORE0 = would never doze1 = slight chance of dozing2 = moderate chance of dozing3 = high chance of dozing SITUATION AND CHANCE OF DOZINGSitting and reading - 3Watching television - 3Sitting inactive in a public place (e.g. a theater or meeting) - 3As a passenger in a car for an hour without a break - 3Lying down to rest in the afternoon when circumstances permit - 3Sitting and talking to someone - 0Sitting quietly after lunch without alcohol - 3In a car, while stopped for a few minutes in the traffic - 0TOTAL SCORE 18Subjectively, patient has a high chance of dozing. Duran Burt MD [address] [place] [address], [place], [address], [place] [facility] [employer] [facility] 08/08/2023 16:05:03 OBGyn Episode No OBEpisode recorded.
--- OUTSIDE RECORDS SUMMARY | 2024-06-06 12:51 | XMS_ITS | Clinical Summary ---
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 Name Role Phone Unavailable Primary Care Provider Unavailabl e Social History Tobacco Use Types Packs/Day Years Used Date Smoking Tobacco: Never Assessed Comments Unknown Sex and Gender Information Value Date Recorded Sex Assigned at Not on file Legal Sex Female 10:31 AM CDT Gender Identity Not on file Sexual Orientation Not on file Plan of Treatment Health Maintenance Due Date Last Done Comments Hepatitis C Virus (HCV) Screening 1998 TdaP Immunization 1998 Human Papillomavirus (HPV) Immunization (1 - 3-dose series) 2013 Hepatitis B Immunization (1 of 3 - 19+ 3-dose series) 2017 Pap Smear 2019 Influenza Immunization (#1) 2023 SARS-COV-2 Immunization ( season) 2023 Respiratory Syncytial Virus (RSV) Immunization (Adult) (1 - 1-dose 75+ series) 2073 Meningococcal Immunization (ACWY) Aged Out No longer eligible based on patient's age to complete this topic Pneumococcal Immunization Combined Aged Out No longer eligible based on patient's age to complete this topic Rotavirus Immunization Aged Out No lo nger eligible based on patient's age to complete this topic
--- OUTSIDE RECORDS SUMMARY | 2024-06-06 12:51 | XMS_ITS ---
Author Organization [facility] Address [address] [place] [address] Care Team Providers Care Head Bellhop Captain Name Role Phone TyroneChinyere laguerre Primary Care Provider Yeimi Gaxiola [phone] REASON FOR VISIT Health Department Social History Sex Assigned At : Social History Observation Description Sex Assigned At Female Encounters Encounter Location Date Provider Diagnosis [address] [place] [address] 01/28/2024 Yeimi Gaxiola Plan Of Treatment No Information Progress Notes * DEBBY OROPEZA DDOB: [birth year] (23 yo F)Acc No.[id number]:01/28/2024 Patient: Imer DEBBY RINCON :2000 A ge:23 Y S ex:Female Address:[address] [place] [phone] * true * Date: Generated for Tianai giselle/Facelesteg/eTransmitting on: 0 06/06/2024 12:51 PM 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
--- OUTSIDE RECORDS SUMMARY | 2024-06-06 12:51 | XMS_ITS ---
Author Organization [facility] Address [address] [place] [address] Care Team Providers Care Route Sales Trainee Name Role Phone JunitoChinyere Primary Care Provider [phone] Yeimi Gaxiola Unavailable [phone] Allergies No Known Allergies REASON FOR VISIT test / poss blood work Medications Medication SIG (Take, Route, Frequency, Duration) Notes Start Date End Date Status Omeprazole 20 MG TAKE 1 CAPSULE BY MO [facility] EVERY DAY 30 MINUTES BEFORE BREAKFAST for 90 Not-Taki ng Ondansetron 4 MG 1 tablet on the tong ue and allow to dissolve Orally Once a day for 30 day(s) 04/12/2023 Not-Taking Sprintec 28 0.25-35 MG-MCG 1 tablet Orally Once a day for 28 days 09/04/2023 Not-Taking Topiramate 25 MG [facility] for 90 Not-Taking Amoxicillin 500 MG 1 capsule Orally amy ry 8 hrs for 5 day(s) Not-Taking Social History Tobacco Use: Social History Observation Description Date Details (start date - stop date) Never Smoker NA - NA Sex Assigned At : Social History Observation Description Sex Assigned At Female Tobacco Control (Standard) Question Answer Notes Tobacco use: Nonsmoker Vital Signs Weight 365 lbs 01/23/2024 Height 69 in 01/23/2024 BMI 53.9 kg/m2 01/23/2024 Blood pressure systolic 134 mm Hg 01/23/20 24 Blood pressure diastolic 78 mm Hg 024 Heart Rate 90 /min 01/23/2024 Oximetry 98 % 01/23/2024 Respiratory Rate 18 /min 01/23/2024 Encounters Encounter Location Date Provider Diagnosis [address] [place] [address] 01/23/2024 Yeimi Gaxiola Possible Z32.00 ; Nutritional counseling Z71.3 and Vaginitis N76.0 Assessments Encounter Date Diagnosis (ICD Code) Assessment Notes Treatment Notes Treatment Clinical Notes Section Notes 01/23/2024 Possible (ICD-10 - Z32.00) 01/23/2024 Nutritional counseling (ICD-10 - Z71.3) 01/23/2024 Vaginitis (ICD-10 - N76.0) Plan Of Treatment Next Appt Details Follow Up: prn, Reason: Progress Notes * DEBBY OROPEZA DDOB: 8 (23 yo F)Acc No.[id number]:01/23/2024 Progress Notes Patient: Imer RINCON DEBBY Agnulo Provider: Traci Gaxiola APRN :2000 A ge:23 Y S ex:Female Date:01/23/2024 Address:[address] [place], [place] [id number] Pcp:Chinyere Wild Check In:02:37 PM BOMB TECHNICIAN Subjective: * Chief Complaints: * P regnancy test / poss blood work * HPI: S creening: [place] Suicide Severity Rating Scale (LF) D o you want to initiate with S creener form, 1 . Wish to be : Have you wished you were or wished you could go to sleep and not wake up? N o, 2 . Suicidal Thoughts: Have you actually had any thoughts of killing yourself? N o, 6 . Suicide Behaviour: Have you ever done anything,started to do anything, or prepared to end your life? N o, I nterpretation: L ow Risk. I nterim History: Emergency room visit N o. W as hospitalized N o.? D epression Screening: PHQ-9 L ittle interest or pleasure in doing things N ot at all, F eeling down, depressed, or hopeless N ot at all, T rouble falling or staying asleep, or sleeping too much N ot at all, F eeling tired or having little energy N ot at all, P oor appetite or overeating N ot at all, F eeling bad about yourself or that you are a failure, or have let yourself or your family down N ot at all, T rouble concentrating on things, such as reading the newspaper or watching television N ot at all, M oving or speaking so slowly that other people could have noticed; or the opposite, being so fidgety or restless that you have been moving around a lot more than usual N ot at all, T houghts that you would be better off or of hurting yourself in some way N ot at all, T otal Score 0 . I ntervention D epression Screening Findings N egative. C SSRS Interpretation and Follow Up Plan: CSSRS Interpretation and Follow Up Plan. CSSRS Interpretation and Follow Up Plan C SSRS Screen documented using SF Y es, M oderate or High risk requires selection of a follow up plan C SSRS No/Low: intervention not needed at this time. P reventative Health and Wellness follow-up: Action Plans for Clinical Quality Measures: C ervical Cancer Screening: D iscussed need for cervical cancer screening. Referred to [facility] for same day scheduling.. . S ummary: Reports 2 positive tests at home, positive inhouse today LMP 1st week of December Reports vaginal odor, denies discharge- Nuswab ordered. Pt. advised to contact insurance company for a list of OB providers. * ROS: G eneral/Constitutional: Denies C hange in appetite. D enies C hills. D enies F atigue. D enies F ever. D enies H eadache. D enies W eight loss.? R espiratory: Denies D yspnea. C ardiovascular: Denies E antolin. D enies C hest pain. D enies?Claudication. G astrointestinal: Denies A bdominal pain. D enies N ausea. G enitourinary: urinary problems Denies. M usculoskeletal: Patient denies m usculoskeletal concerns. S kin: Denies R sebastian. * Medical History: * Surgical History: N o Surgical History documented. * Hospitalization/Major Diagno stic Procedure: N o Hospitalization History. * Family History: F ather: alive. M other: alive. 1 sister(s) - healthy. 1 son(s) - healthy. . * Social History: P rimary Social History: L iving Arrangement L iving Arrangement: D ependent Living, L iving with: P arent(s), I s this a supportive environment? Y es. A lcohol Use A lcohol Use Frequency: M onthly or less. I llicit Substance Usage I llicit Substance Usage: N o. 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 T obacco Use: T obacco Control (Standard) T obacco use: N onsmoker. M iscellaneous: M ethod of learning P referred method of learning: R eading,Demonstration,Hearing.? * Medications: N ot-TakingOndansetron 4 MG Tablet Disintegrating 1 tablet on the tongue and allow to dissolve Orally Once a day Omeprazole 20 MG Capsule Delayed Release TAKE 1 CAPSULE BY MOUTH EVERY DAY 30 MINUTES BEFORE BREAKFAST Topiramate 25 MG Tablet TAKE 1 TABLET BY MOUTH ONCE DAILY Sprintec 28 0.25-35 MG-MCG Tablet 1 tablet Orally Once a day Amoxicillin 500 MG Capsule 1 capsule Orally every 8 hrs Medication List reviewed and reconciled with the patientNot-Taking Ondansetron 4 MG Tablet Disintegrating 1 tablet on the tongue and allow to dissolve Orally Once a day Not-Taking Omeprazole 20 MG Capsule Delayed Release TAKE 1 CAPSULE BY MOUTH EVERY DAY 30 MINUTES BEFORE BREAKFAST Not-Taking Topiramate 25 MG Tablet TAKE 1 TABLET BY MOUTH ONCE DAILY Not-Taking Sprintec 28 0.25-35 MG-MCG Tablet 1 tablet Orally Once a day Not-Taking Amoxicillin 500 MG Capsule 1 capsule Orally every 8 hrs Medication List reviewed and reconciled with the patient * Allergies: N .K.D.A.no[Allergies Verified] Objective: * Vitals: I nitials: st, Wt:365, Ht: 69, BMI:53.9, BP:134/78, HR:90, Oxygen sat %:98, RR:18, LMP: 12/2023, Pain scale:0. * Examination: G eneral Examination: GENERAL APPEARANCE: a lert, oriented, well developed, well nourished, in no acute distress. EYES: P ERRLA, sclera and conjunctiva clear. EARS a uditory canal clear, tympanic membrane intact, clear, light reflex present. NOSE: n saira patent, no lesions, septum intact. ORAL CAVITY: m ucosa moist. THROAT: n o erythema, no exudate, pharynx normal. NECK/THYROID: n o cervical lymphadenopathy, no thyromegaly.? SKIN: w arm and dry, no rashes. HEART: r egular rate and rhythm, no murmurs. LUNGS: r espirations regular and easy, clear to auscultation bilaterally. ABDOMEN: b owel sounds present, soft, nontender, nondistended, no masses palpable, no organomegaly . Assessment: * Assessment: 1. P ossible - Z32.00 (Primary) 2 . N utritional counseling - Z71.3 3 . V aginitis - N76.0 Plan: * Treatment: 2. V aginitis L AB: NuSwab Vaginitis Plus (VG+) (Ordered for 01/23/2024) * Recommended Wellness and Pre vention Guidelines: * S tatus A lert L ast Done N ext Due A ction Taken N ONCOMPLIANT C ervical cancer screening - 1 - * Procedure Codes: 3 008F BODY MASS INDEX [id number] MEDICAL NUTRITION, INDIV, [id number] TOBACCO NON-USER * Preventive Medicine: Counseling: C are goal follow-up plan: B IN management provided Y es, Lisa valentinee Normal BMI Follow-up L ifestyle education regarding diet. * Follow Up: p rn * * Sign off status: Completed true * Provider: Traci Gaxiola, JEFRY Date: 1 Generated for Jennifer desai/Brittany/Grant on: 0 06/06/2024 12:51 PM BOMB TECHNICIAN History and Physical Notes * HPI (History of Present Illness) Category Sub-Category Detail Notes Category Not es Interim History Was hospitalized No Emergency room visit No Depression Screening PHQ-9 Little inte rest or pleasure in doing things: Not at all Feeling down, depressed, or hopeless: No t at all Trouble falling or staying asleep, or sl eeping too much: Not at all Feeling tired or having little energy: N ot at all Poor appetite or overeating: Not at all Feeling bad about yourself o r that you are a failure, or have let yourself or your family down: Not at all Trouble concentrating on thi ngs, such as reading the newspaper or watching television: Not at all Moving or speaking so slowly that other people could have noticed; or the opposite, being so fidgety or restless that you have been moving around a lot more than usual: Not at all Thoughts that you would be b prem off or of hurting yourself in some way: Not at all Total Score: 0 Intervention Depression Screening Findings: N egative Summary Reports 2 positive tests at home, positive inhouse today LMP week of December Reports vaginal odor, denies discharge- Nuswab ordered. Pt. advised to contact insurance company for a list of OB providers Screening [place] Suicide Severity Rating Scale (LF) Do you want to initiate with: Screener form 1. Wish to be : Have you wished you were or wished you could go to sleep and not wake up?: No 2. Suicidal Thoughts: Have you actually had any thoughts of killing yourself?: No 6. Suicide Behavior Question: Have you ever done anything,started to do anything, or prepared to end your life?: No Interpretation:: Low Risk Do Not Use CSSRS Interpretation and Follow Up Plan CSSRS Interpretation and Follow Up Plan CSSRS Screen documented using SF: Yes Moderate or High risk requir es selection of a follow up plan: CSSRS No/Low: intervention not needed at this time Preventative Health and Wellness follow-up Action Plans for Clinical Quality Measures: Cervical Cancer Screening:: Discussed need for cervical cancer screening. Referred to [facility] for same day scheduling. . Examination Category Sub-Category Detail Notes Category Not es General Examination GENERAL APPEARANCE: alert, o riented, well developed, well nourished, in no acute distress EYES: PERRLA, sclera and c onjunctiva clear EARS auditory canal clear , tympanic membrane intact, clear, light reflex present NOSE: nares patent, no les ions, septum intact THROAT: no erythema, no exud ate, pharynx normal NECK/THYROID: no cervical lymphade nopathy, no thyromegaly HEART: regular rate and rhy thm, no murmurs LUNGS: respirations regular and easy, clear to auscultation bilaterally ABDOMEN: bowel sounds present , soft, nontender, nondistended, no masses palpable, no organomegaly SKIN: warm and dry, no nate hes ORAL CAVITY: mucosa moist
--- OUTSIDE RECORDS SUMMARY | 2024-06-06 12:52 | XMS_ITS | Patient Health Record ---
Author Organization [facility] Address [address] [place] [address] Care Team Providers Care Statement Distribution Clerk Name Role Phone Chinyere Wild Primary Care Provider [phone] Beth Meyer Unavailable [phone] Yeimi Gaxiola Unavailable [phone] Allergies No Known Allergies Results Component Value Reference Range Notes NuSwab Vaginitis Plus (VG+) ([id number]) Reviewed date:01/29/2024 08:05:25 AM Interpretation:Abnormal [facility]forming [facility], [address] [place] [address], Phone - [phone], Director - Rosalia Notes/Report: Test(s) 232897- Atopobium vaginae; 226627- BVAB 2; 274719- Megasphaera 1 was developed and its performance characteristics determined by [facility]. It has not been cleared or approved by the Food and Drug Administration. Test(s) 404416-Tkrvzmw albicans, AJAY; 608927-Wsmqfzr glabrata, AJAY was developed and its performance characteristics determined by [facility]. It has not been cleared or approved by the Food and Drug Administration. Atopobium vaginae High - 2 BVAB 2 High - 2 Megasphaera 1 High - 2 Calculate total score by adding the 3 individual bacterial vaginosis (BV) marker scores together. Total score is interpreted as follows: Total score 0-1: Indicates the absence of BV. Total score 2: Indeterminate for BV. Additional clinical data should be evaluated to establish a diagnosis. Total score 3-6: Indicates the presence of BV. Yola albicans, AJAY Negative Negative Yola glabrata, AJAY Negative Negative Trich vag by AJAY Negative Negative Chlamydia trachomatis, AJAY Positive Negative . Neisseria gonorrhoeae, AJAY Negative Negative Test, Urine Reviewed date:02/19/2024 08:45:05 AM Interpretation: Performing Lab: Notes/Report: Test, Urine pos Negative - Negative Test, Urine Reviewed date:09/05/2023 07:56:33 AM Interpretation: Performing Lab: Notes/Report: Test, Urine neg Negative - Negative Reason For Referral No Information Medications Medication SIG (Take, Route, Frequency, Duration) Notes Start Date End Date Status Omeprazole 20 MG TAKE 1 CAPSULE BY MO [facility] EVERY DAY 30 MINUTES BEFORE BREAKFAST for 90 Unknown Sprintec 28 0.25-35 MG-MCG 1 tablet Oral ly Once a day for 28 days 09/04/2023 Unknown Topiramate 25 MG TAKE 1 TABLET BY [facility] ONCE DAILY for 90 Unknown Amoxicillin 500 MG 1 capsule Orally amy ry 8 hrs for 5 day(s) Unknown Azithromycin 500 MG 2 Tablets Orally onc e for 1 days 01/29/2024 Active Ondansetron 4 MG 1 tablet on the tong ue and allow to dissolve Orally Once a day for 30 day(s) 04/12/2023 Unknown Social History Tobacco Use: Social History Observation Description Date Details (start date - stop date) Never Smoker NA - NA Sex Assigned At : Social History Observation Description Sex Assigned At Female Dont use, Tobacco Use/Smoking Question Answer Notes Are you a nonsmoker Tobacco Control (Standard) Question Answer Notes Tobacco use: Nonsmoker Problems Problem Type SNOMED Code ICD Code Onset Dates Problem Status W/U Status Risk Notes Problem Morbid obesity (disorder) (142546947) Morbid (severe) obesity due to excess calories (E66.01) Active confirmed Problem Irregular menstrual cycle (16019152) Irregular menstrual cycle (N92.6) Active confirmed Problem Acid reflux (810972428) Acid reflux (K21.9) Active confirmed Vital Signs Heart Rate 90 /min 01/23/2024 Respiratory Rate 18 /min 01/23/2024 Oximetry 98 % 01/23/2024 Blood pressure diastolic 78 mm Hg 01/23/2024 Height 69 in 01/23/2024 Blood pressure systolic 134 mm Hg 01/23/2024 Weight 365 lbs 01/23/2024 BMI 53.9 kg/m2 01/23/2024 Encounters Encounter Location Date Provider Diagnosis [facility] [address] [place] [address] 09/04/2023 Chinyere Wild Irregular menstrual cycle N92.6 ; Acid reflux K21.9 ; Morbid (severe) obesity due to excess calories E66.01 ; Nutritional counseling Z71.3 and Contraception management Z30.[address] [place] [address] 01/23/2024 Yeimi Gaxiola Possible Z32.00 ; Nutritional counseling Z71.3 and Vaginitis N76.[address] [address] 10/23/2023 Beth Meyer [address] [address] 01/28/2024 Yeimi Gaxiola [address] [address] 01/29/2024 Yeimi Gaxiola Chlamydia A74.9 and Vaginitis N76.0 Assessments Encounter Date Diagnosis (ICD Code) Assessment Notes Treatment Notes Treatment Clinical Notes Section Notes 09/04/2023 Irregular menstrual cycle (ICD-10 - N92.6) 09/04/2023 Acid reflux (ICD-10 - K21.9) Gastroesophageal Reflux Disease (GERD): Care Instructions material was printed 01/23/2024 Possible (ICD-10 - Z32.00) 01/23/2024 Nutritional counseling (ICD-10 - Z71.3) 01/29/2024 Vaginitis (ICD-10 - N76.0) 01/29/2024 Chlamydia (ICD-10 - A74.9) 09/04/2023 Morbid (severe) obesity due to excess calories (ICD-10 - E66.01) 01/23/2024 Vaginitis (ICD-10 - N76.0) 09/04/2023 Nutritional counseling (ICD-10 - Z71.3) 09/04/2023 Contraception management (ICD-10 - Z30.9) Plan Of Treatment No Information Insurance Providers Payer Name Payer Address Payer Phone Subscriber Number Group Number Insured Name Patient Relationship to Insured Coverage Start Date Coverage End Date [address] [place] [address] [id number] DEBBY OROPEZA Self - patient is the insured 9 Medical (General) History Medical History History ICD Code cramps headache nausea upper abdominal pain (RUQ) lower abdominal pain (RLQ) Surgical History Surgery Date(Month/Year) Hospitalization History Reason Date(Month/Year)
--- OUTSIDE RECORDS SUMMARY | 2024-06-06 12:52 | XMS_ITS ---
Author Organization [facility] Address [address] [place] [address] Care Team Providers Care Solutions Delivery Consultant Name Role Phone Chinyere Wild Primary Care Provider [phone] Yeimi Gaxiola Unavailable [phone] REASON FOR VISIT Lab results Medications Medication SIG (Take, Route, Frequency, Duration) Notes Start Date End Date Status Omeprazole 20 MG TAKE 1 CAPSULE BY MO [facility] EVERY DAY 30 MINUTES BEFORE BREAKFAST for 90 Unknown Sprintec 28 0.25-35 MG-MCG 1 tablet Oral ly Once a day for 28 days 09/04/2023 Unknown Topiramate 25 MG TAKE 1 TABLET BY [facility] ONCE DAILY for 90 Unknown Amoxicillin 500 MG 1 capsule Orally amy ry 8 hrs for 5 day(s) Unknown Ondansetron 4 MG 1 tablet on the tong ue and allow to dissolve Orally Once a day for 30 day(s) 04/12/2023 Unknown Azithromycin 500 MG 2 Tablets Orally onc e for 1 days 01/29/2024 Active Social History Sex Assigned At : Social History Observation Description Sex Assigned At Female Encounters Encounter Location Date Provider Diagnosis [address] [place] [address] 01/29/2024 Yeimi Gaxiola Chlamydia A74.9 and Vaginitis N76.0 Assessments Encounter Date Diagnosis (ICD Code) Assessment Notes Treatment Notes Treatment Clinical Notes Section Notes 01/29/2024 Chlamydia (ICD-10 - A74.9) 01/29/2024 Vaginitis (ICD-10 - N76.0) Plan Of Treatment Medication Medication Name Sig Start Date Stop Date Notes Azithromycin 500 MG 2 Tablets Orally once for 1 days 01/28 Progress Notes * DEBBY OROPEZA DDOB: 8 (23 yo F)Acc No.[id number]:01/29/2024 Patient: DEBBY CORREA :2000 A ge:23 Y S ex:Female Address:[address] [place] [address] * Refills Start Azithromycin Tablet, 500 MG, Orally, 2, 2 Tablets, once, 1 days, Refills=0 Subjective: * Chief Complaints: * L ab results * Medical History: * Surgical History: * Hospitalization/Major Diagno stic Procedure: * Medications: U nknownOndansetron 4 MG Tablet Disintegrating 1 tablet on [...] Capsule 1 capsule Orally every 8 hrs Unknown Ondansetron 4 MG Tablet Disintegrating 1 tablet on the tongue and allow to dissolve Orally Once a day Unknown Omeprazole 20 MG Capsule Delayed Release TAKE 1 CAPSULE BY MOUTH EVERY DAY 30 MINUTES BEFORE BREAKFAST Unknown Topiramate 25 MG Tablet TAKE 1 TABLET BY MOUTH ONCE DAILY Unknown Sprintec 28 0.25-35 MG-MCG Tablet 1 tablet Orally Once a day Unknown Amoxicillin 500 MG Capsule 1 capsule Orally every 8 hrs Objective: * Vitals: * Physical Examination: Assessment: * Assessment: 1. V aginitis - N76.0 2 . C hlamydia - A74.9 (Primary) Plan: * Treatment: * Procedure Codes: * true * Date: Generated for Jennifer desai/Brittany/Grant on: 0 06/06/2024 12:51 PM ASSISTANCE REPRESENTATIVE
--- NOTE | 2024-06-06 12:54 | ED.CHESTPAIN ---
HPI - Chest Pain General Chief Complaint: Chest Pain Stated Complaint: chest pain Time Seen by Provider: 06/06/24 12:40 Focused HPI: Patient is a 24-year-old female presents to the ER with complaints chest pain that started approximately 1 week ago. She reports she is 25 weeks and figured I just had heartburn. Patient reports Tums was helping relieve her symptoms up until approximately 3 days ago. After eating breakfast this morning patient reports she took Tums and it did not give her any relief so she called her OBGYN who advised her to come to the ER for evaluation. Patient denies any medical history related to this ER visit. She denies any shortness a breath, back pain, abdominal pain. GENERAL: Well-appearing, well-nourished, and in no acute distress. HEAD: Normocephalic, atraumatic. CHEST: Clear to auscultation. ?No respiratory distress. HEART: Regular rate and rhythm.? NEURO: ?Alert and oriented x3. Patient screened in triage and initial orders placed.? ?Additional care and disposition to be based upon?diagnostic testing and treatment. History of Present Illness HPI narrative: see MSE Related Data Allergies Allergy/AdvReac Type Severity Reaction Status Date / Time No Known Allergies Allergy Verified 06/06/24 12:40 Review of Systems Review of Systems: All systems reviewed & are unremarkable except as noted in HPI and below PMFSH Past Medical History Medical History COVID-19 04/23 Strep pharyngitis Social History Social History Smoking status: Never smoker Alcohol intake: current Alcohol use details: rare social Substance use type: does not use Living arrangements: with family Gender identity (if verbalized by the patient): Female Exam Narrative: GENERAL: Well appearing, well-nourished, non-toxic, in no acute distress. HEAD: Normocephalic, atraumatic. NECK: Supple. No adenopathy, no masses. RESPIRATORY: Airway patent, respirations nonlabored. Clear to auscultation bilaterally, no rales, rhonchi, wheezing. CARDIOVASCULAR: Regular rate and rhythm without murmurs, rubs, or gallops. Peripheral pulses 2+ and equal bilaterally. ABDOMINAL: Soft, nontender, nondistended, no hepatosplenomegaly. Normoactive BS. MUSCULOSKELETAL: Moves all extremities. Strength/ROM intact without gross deformities. SKIN: Warm, dry, normal color. No rashes. NEURO: A&O X3. Speech clear. Cranial nerves II-XII grossly intact. Steady gait. No ataxic movements. PSYCHIATRIC: Appropriate mood and affect. Normal interaction. Course Vital Signs Vital signs: Vital Signs Temperature 36.9 C 06/06/24 12:34 Pulse Rate 76 06/06/24 12:34 Respiratory Rate 19 06/06/24 12:34 Blood Pressure 141/84 H 06/06/24 12:34 Pulse Oximetry 98 06/06/24 12:34 Oxygen Delivery Room Air 06/06/24 12:34 Temperature 36.9 C 06/06/24 12:34 Pulse Rate 70 06/06/24 18:41 Respiratory Rate 20 06/06/24 18:41 Blood Pressure 133/86 06/06/24 18:41 Pulse Oximetry 100 06/06/24 18:41 Oxygen Delivery Room Air 06/06/24 12:34 MDM - Chest Pain MDM Narrative Medical decision making narrative: Patient is a 24-year-old female presents to the ER with complaints chest pain that started approximately 1 week ago. She reports she is 25 weeks and figured I just had heartburn. Patient reports Tums was helping relieve her symptoms up until approximately 3 days ago. After eating breakfast this morning patient reports she took Tums and it did not give her any relief so she called her OBGYN who advised her to come to the ER for evaluation. Patient denies any medical history related to this ER visit. She denies any shortness a breath, back pain, abdominal pain. Labs Ordered: CBC, CMP, troponin, lipase, INR, PTT, UA, COVID/flu/RSV swab Imaging Ordered: Chest x-ray Medications Ordered: Omeprazole PO, Reglan PO Results: Patient's troponin levels were negative. Her CBC and CMP were negative for any acute abnormalities. Pt's chest x-ray indicates no acute abnormalities. Diagnosis: Gastric reflux disease Risks: HEART score: low risk HEART Score for Major Cardiac Events from [employer] on 06/06/2024 All calculations should be rechecked by clinician prior to use RESULT SUMMARY: 0 points Low Score (0-3 points) Risk of MACE of 0.9-1.7%. INPUTS: History ?> 0 = Slightly suspicious EKG ?> 0 = Normal Age ?> 0 = <45 Risk factors ?> 0 = No known risk factors Initial troponin ?> 0 = <=Normal limit Patient Education/Shared MDM: Results of blood work shared with patient. She will be given her first dose of Omeprazole and Reglan here in the ER. Patient strongly advised to maintain hydration status upon discharge and follow-up with her OBGYN as soon as possible. She will be discharged home with prescriptions for Reglan PO and Omeprazole PO. Strict return precautions provided. Patient verbalized understanding is in agreement with plan. Vital signs stable at time of discharge. All questions answered. Differential Diagnosis Differential diagnosis: Likely atypical chest pain, st elevation myocardial infarction, costochondritis and other (GERD) Lab Data Attestation: I reviewed the patient's lab results. 06/06/24 13:04 06/06/24 13:04 Labs: Lab Results 06/06/24 06/06/24 06/06/24 Range/Units 13:04 13:15 16:05 WBC 9.4 (4.5-10.0) K/mm3 RBC 4.75 (4.2-5.4) M/mm3 Hgb 12.4 (12.0-15.0) g/dL Hct 37.2 (37.0-47.0) % MCV 78.3 L (80-100) fl MCH 26.1 (26-34) pg MCHC 33.3 (32-36) g/dl RDW 14.5 (11.5-14.5) % Plt Count 214 (150-375) k/mm3 MPV 11.5 H (7.4-10.4) fl Immature Gran % (Auto) 0.4 (0-0.5) % Neut % (Auto) 73.2 H (45.5-73.1) % Lymph % (Auto) 21.0 (18.3-44.2) % Gonzales % (Auto) 4.5 (2.6-8.5) % Eos % (Auto) 0.7 (0-4.4) % Baso % (Auto) 0.2 (0.2-1.2) % Lymph # (Auto) 1.96 (0.9-3.2) K/mm3 Gonzales # (Auto) 0.4 (0.1-0.6) K/mm3 Eos # (Auto) 0.1 (0-0.3) K/mm3 Baso # (Auto) 0.0 (0.0-0.1) K/mm3 Abs Immat Gran (auto) 0.04 H (0.00-0.031) K/mm3 Absolute Neuts (auto) 6.8 H (1.3-6.7) K/mm3 Absolute Nucleated RBC 0.000 (0.0-0.012) K/mm3 Nucleated RBC % 0.0 (0.0-0.2) % PT 14.0 (11.1-14.7) Seconds INR 1.1 APTT 28.8 (22.3-36.8) Seconds Sodium 136 L (137-145) mmol/L Potassium 3.8 (3.4-5.0) mmol/L Chloride 107 (98-107) mmol/L Carbon Dioxide 20 L (22-30) mmol/L Anion Gap 9 (4-12) mmol/L BUN 7 (7-17) mg/dL Creatinine 0.39 L (0.7-1.0) mg/dL Estim Creat Clear Calc 276 ml/min Estimated GFR > 60 (59 - ) Glucose 88 (65-110) mg/dL Calcium 8.9 (8.4-10.2) mg/dL Total Bilirubin 0.3 (0.2-1.3) mg/dL AST 16 (14-36) U/L ALT 16 (6-35) U/L Alkaline Phosphatase 134 H (38-126) U/L Troponin I < 0.012 < 0.012 (0.000-0.034) ng/mL Total Protein 7.0 (6.3-8.2) g/dL Albumin 3.4 L (3.5-5.1) g/dL Lipase 29 (23-300) U/L Influenza A (RT-PCR) Negative (Negative) Influenza B (RT-PCR) Negative (Negative) RSV (RT-PCR) Negative (Negative) SARS-CoV-2 RNA (RT-PCR) Negative (Negative) Discharge Plan Discharge Clinical Impression: Gastric reflux syndrome, Atypical chest pain Patient Disposition: Home, Self-Care Condition: Stable Instructions: Antibiotic Form, Diet for Stomach Ulcers and Gastritis (ED), GERD (Gastroesophageal Reflux Disease) (ED) Additional Instructions: Please return to the ER with any worsening symptoms. Follow-up with your OBGYN as soon as possible. Take all medications as prescribed. Patient Language: Urdu Prescriptions: New metoclopramide HCl [Reglan] 10 mg tablet 10 mg PO Q6H PRN (Reason: nausea and vomiting) Qty: 14 0RF omeprazole 20 mg capsule,delayed release(DR/EC) 20 mg PO BID Qty: 30 0RF No Action lorazepam 0.5 mg tablet 0.5 mg PO BID PRN (Reason: anxiety) Qty: 7 0RF Follow-up/Referrals: PHYSICIAN,S[employer] PROF[employer] [Non-Staff] - Time of Disposition: 18:14
[2024-06-06 13:11] LABS: Basophils Percent Auto 0.2 % (0.2-1.2); Eosinophils Absolute Auto 0.1 K/mm3 (0-0.3); Eosinophils Percent Auto 0.7 % (0-4.4); Hematocrit 37.2 % (37.0-47.0); Hemoglobin 12.4 g/dL (12.0-15.0); Immature Granulocyte Absolute 0.04 K/mm3 (0.00-0.031); Immature Granulocyte Percent A 0.4 % (0-0.5); Lymphocytes Absolute Auto 1.96 K/mm3 (0.9-3.2); Mean Corpuscular HGB Conc 33.3 g/dl (32-36); Mean Corpuscular Hemoglobin 26.1 pg (26-34); Mean Corpuscular Volume 78.3 fl (80-100); Mean Platelet Volume 11.5 fl (7.4-10.4); Monocytes Absolute Auto 0.4 K/mm3 (0.1-0.6); Monocytes Percent Auto 4.5 % (2.6-8.5); Neutrophils Absolute Auto 6.8 K/mm3 (1.3-6.7); Neutrophils Percent Auto 73.2 % (45.5-73.1); Platelet Count Result 214 k/mm3 (150-375); Red Blood Count 4.75 M/mm3 (4.2-5.4); Red Cell Distribution Width 14.5 % (11.5-14.5); White Blood Count 9.4 K/mm3 (4.5-10.0)
[2024-06-06 13:25] LABS: Alanine Aminotransferase 16 U/L (6-35); Albumin Level 3.4 g/dL (3.5-5.1); Alkaline Phosphatase 134 U/L (38-126); Anion Gap 9 mmol/L (4-12); Aspartate Amino Transferase 16 U/L (14-36); Bilirubin,Total 0.3 mg/dL (0.2-1.3); Blood Urea Nitrogen 7 mg/dL (7-17); Calcium 8.9 mg/dL (8.4-10.2); Carbon Dioxide 20 mmol/L (22-30); Chloride 107 mmol/L (98-107); Estimated CRCL calculation 276 ml/min; Estimated Glomerular Filt Rate > 60; Glucose 88 mg/dL (65-110); Lipase 29 U/L (23-300); Potassium 3.8 mmol/L (3.4-5.0); Sodium 136 mmol/L (137-145)
[2024-06-06 13:37] LABS: Troponin I < 0.012 ng/mL (0.000-0.034)
[2024-06-06 13:54] LABS: INR 1.1
[2024-06-06 13:55] LABS: Partial Thromboplastin Time 28.8 Seconds (22.3-36.8)
[2024-06-06 14:01] LABS: Influenza A QL RT-PCR Negative (Negative); Influenza B QL RT-PCR Negative (Negative); RSV RNA, RT-PCR Negative (Negative); SARS-CoV-2 RNA PCR Negative (Negative)
--- OUTSIDE RECORDS SUMMARY | 2024-06-06 15:50 | XMS_ITS | Clinical Summary ---
Author Organization [facility] Address [address] [place] [address] Phone Care Team Providers Care Agricultural Science Professor Name Role Phone Unavailable Primary Care Provider [...]
--- NOTE | 2024-06-06 16:03 | ECG_ITS ---
Test Date: 2024-06-06 16:11:08 Measurements Intervals [place] Rate: 88 P: 48 [place]: 130 QRS: 27 QRSD: 90 T: 37 QT: 355 QTc: 431 Interpretive Statements SINUS RHYTHM NORMAL ELECTROCARDIOGRAM Compared to ECG 06/06/2024 12:45:32 NO DIFFERENCE Electronically Signed On 06-07-2024 15:31:57 ANCHORMAN by Mahamed De La Rosa M.D.
[2024-06-06 17:14] LABS: Troponin I < 0.012 ng/mL (0.000-0.034)
[2024-06-06] MEDS: METOCLOPRAMIDE HCL 10 MG TABLET PO (18:38)
[2024-06-06] MEDS: PANTOPRAZOLE 40 MG TABLET PO (18:38)
[2024-06-06 18:41] VITALS: BP 133/86; PULSE 70; RESP 20; O2SAT 100
== END 2024-06-06 18:44 | disposition home or self-care (01) ==
PROVIDERS: Emergency Medicine; Registered Nurse; Emergency Provider Emergency Medicine
DX: O99.612 Diseases of the digestive system complicating pregnancy, second trimester (principal); K21.9 Gastro-esophageal reflux disease without esophagitis; R07.89 Other chest pain; Z20.822 Contact with and (suspected) exposure to COVID-19; Z86.16 Personal history of COVID-19; Z3A.25 25 weeks gestation of pregnancy
CPT/HCPCS: 36415; 71046; 80053; 83690; 84484; 85025; 85610; 85730; 87637; 93005; 99284; A9270

== ENCOUNTER 2024-08-04 11:49 | Observation (INO) | payer OTHER, SELFPAY ==
[2024-08-04] VITALS (11 sets, daily range): BP systolic 122–168; BP diastolic 58–91; PULSE 75–100; BMI 55.3
--- OUTSIDE RECORDS SUMMARY | 2024-08-04 12:31 | XMS_ITS | Clinical Summary ---
Author Organization [facility] Address [address] [place] [address] Phone Care Team Providers Care Slot Manager Name Role Phone Unavailable Primary Care Provider [...]
[2024-08-04 13:33] LABS: Basophils Percent Auto 0.3 % (0.2-1.2); Eosinophils Absolute Auto 0.1 K/mm3 (0-0.3); Eosinophils Percent Auto 1.1 % (0-4.4); Hematocrit 35.7 % (37.0-47.0); Hemoglobin 11.2 g/dL (12.0-15.0); Immature Granulocyte Absolute 0.03 K/mm3 (0.00-0.031); Immature Granulocyte Percent A 0.3 % (0-0.5); Lymphocytes Absolute Auto 1.91 K/mm3 (0.9-3.2); Lymphocytes Percent Auto 20.6 % (18.3-44.2); Mean Corpuscular HGB Conc 31.4 g/dl (32-36); Mean Corpuscular Hemoglobin 24.3 pg (26-34); Mean Corpuscular Volume 77.6 fl (80-100); Mean Platelet Volume 12.7 fl (7.4-10.4); Monocytes Absolute Auto 0.5 K/mm3 (0.1-0.6); Monocytes Percent Auto 5.8 % (2.6-8.5); Neutrophils Absolute Auto 6.7 K/mm3 (1.3-6.7); Neutrophils Percent Auto 71.9 % (45.5-73.1); Platelet Count Result 206 k/mm3 (150-375); Red Cell Distribution Width 14.3 % (11.5-14.5); White Blood Count 9.3 K/mm3 (4.5-10.0)
[2024-08-04 13:44] LABS: Alanine Aminotransferase 14 U/L (6-35); Albumin Level 3.1 g/dL (3.5-5.1); Alkaline Phosphatase 148 U/L (38-126); Anion Gap 7 mmol/L (4-12); Aspartate Amino Transferase 13 U/L (14-36); Bilirubin,Total 0.2 mg/dL (0.2-1.3); Blood Urea Nitrogen 8 mg/dL (7-17); Calcium 8.4 mg/dL (8.4-10.2); Carbon Dioxide 21 mmol/L (22-30); Chloride 106 mmol/L (98-107); Estimated Glomerular Filt Rate > 60; Glucose 94 mg/dL (65-110); Potassium 3.9 mmol/L (3.4-5.0); Sodium 134 mmol/L (137-145); Uric Acid 4.2 mg/dL (2.5-7.5)
[2024-08-04 13:53] LABS: Add Urine Microscopic? YES; Appearance Urine Cloudy (Clear); Bacteria Urine 3+ /hpf; Bilirubin Urine Negative (Negative); Blood Urine Negative (Negative); Color Urine Dark Yellow (Yellow); Glucose Urine UA Negative (Negative); Ketones Urine Trace mg/dL (Negative); Leukocyte Esterase Ur Negative LEU/UL (Negative); Need Manual Microscopic Reviewed; Nitrate Urine Negative (Negative); Non Pathogenic Casts 0-2; Protein Urine 1+ mg/dL (Negative); RBC Urine 0-2 /hpf (0-2); Specific Grav Ur 1.029 (1.001-1.035); Squamous Epithelial Cell Urine Moderate /hpf (Few); WBC Urine 0-5 /hpf (0-3)
--- NOTE | 2024-08-04 14:19 | LDADM ---
This patient, William Koroma, was admitted to [facility] on 08/04/24 at 11:49. Plans for labor, pain management and were discussed with patient. Patient/family oriented to hospital policies and general routines including ID bracelet, bed and alarms, visiting hours, pain management, procedures, bathroom and other care routines, personal items, smoking policy, room service/diet and guest tray routines, infant security routines, and visiting hours. Patient/Family are encouraged to report perceived risks to care and to ask questions if they do not understand what they are told or what they should do. See OBIX for further documentation.
--- NOTE | 2024-08-04 14:19 | OBADM ---
This patient, William Koroma, admitted to the OB room [facility] for observation. Patient/family oriented to hospital policies and general routines including ID bracelet, bed and alarms, visiting hours, pain management, procedures, bathroom and other care routines, personal items, smoking policy, room service/diet, and visiting hours. Patient/Family are encouraged to report perceived risks to care and to ask questions if they do not understand what they are told or what they should do.
[2024-08-04 14:39] LABS: Creatinine Urine 219.6 mg/dL; Total Protein Urine Random 9 mg/dL; Ur Ttl Prot Creatinine Ratio 0.04 mg/mg (0-0.20)
--- NOTE | 2024-08-29 08:16 | PM.OBTRLD ---
OB - Triage/Final Diagnosis Visit Information Comments/Additional reasons for admission: I have assessed the risk for this patient, William Koroma, and determined that she would benefit from observation care. Evaluation Laboratory results: Laboratory Tests 08/04/24 08/04/24 08/04/24 13:13 13:16 13:21 WBC 9.3 RBC 4.60 Hgb 11.2 L Hct 35.7 L MCV 77.6 L MCH 24.3 L MCHC 31.4 L RDW 14.3 Plt Count 206 MPV 12.7 H Immature Gran % (Auto) 0.3 Neut % (Auto) 71.9 Lymph % (Auto) 20.6 [place] % (Auto) 5.8 Eos % (Auto) 1.1 Baso % (Auto) 0.3 Lymph # (Auto) 1.91 [place] # (Auto) 0.5 Eos # (Auto) 0.1 Baso # (Auto) 0.0 Abs Immat Gran (auto) 0.03 Absolute Neuts (auto) 6.7 Absolute Nucleated RBC 0.000 Nucleated RBC % 0.0 Sodium 134 L Potassium 3.9 Chloride 106 Carbon Dioxide 21 L Anion Gap 7 BUN 8 Creatinine 0.45 L Estim Creat Clear Calc Not Reportable Estimated GFR > 60 Glucose 94 Uric Acid 4.2 Calcium 8.4 Total Bilirubin 0.2 AST 13 L ALT 14 Alkaline Phosphatase 148 H Total Protein 6.0 L Albumin 3.1 L Urine Color Dark yellow Urine Appearance Cloudy H Urine pH 6.0 Ur Specific Milton 1.029 Urine Protein 1+ H Urine Glucose (UA) Negative Urine Ketones Trace H Ur Blood (Man) Negative Urine Nitrate Negative Urine Bilirubin Negative Urine Urobilinogen 1.0 Add Ur Microanalysis Reviewed Leukocyte Esterase Rfl Negative Urine RBC 0-2 Urine WBC 0-5 Ur Squamous Epith Cells Moderate Urine Bacteria 3+ H Urine Casts 0-2 U Random Total Protein 9 Urine Creatinine 219.6 Protein/Creat Ratio 2 0.04 Final Diagnosis (1) False labor: Code(s): O47.9 - False labor, unspecified Status: Acute
== END 2024-08-04 15:06 | disposition home or self-care (01) ==
PROVIDERS: Admitting Provider Obstetrics & Gynecology; Visit Provider Obstetrics & Gynecology
DX: O47.03 False labor before 37 completed weeks of gestation, third trimester (principal); Z3A.34 34 weeks gestation of pregnancy
CPT/HCPCS: 36415; 80053; 81001; 82570; 84156; 84550; 85025; G0378; G0379

== ENCOUNTER 2024-09-04 20:03 | Outpatient (RCR) | payer OTHER, SELFPAY ==
[2024-07-13 16:28] VITALS: BP 127/75; PULSE 99
[2024-09-04] VITALS (18 sets, daily range): BP systolic 122–128; BP diastolic 68–90; PULSE 97–119; O2SAT 96–100
[2024-09-04 20:54] LABS: Basophils Percent Auto 0.3 % (0.2-1.2); Eosinophils Absolute Auto 0.1 K/mm3 (0-0.3); Eosinophils Percent Auto 0.9 % (0-4.4); Hematocrit 38.5 % (37.0-47.0); Hemoglobin 11.5 g/dL (12.0-15.0); Immature Granulocyte Absolute 0.04 K/mm3 (0.00-0.031); Immature Granulocyte Percent A 0.5 % (0-0.5); Lymphocytes Absolute Auto 2.07 K/mm3 (0.9-3.2); Lymphocytes Percent Auto 24.1 % (18.3-44.2); Mean Corpuscular HGB Conc 29.9 g/dl (32-36); Mean Corpuscular Hemoglobin 23.8 pg (26-34); Mean Corpuscular Volume 79.7 fl (80-100); Mean Platelet Volume 12.3 fl (7.4-10.4); Monocytes Absolute Auto 0.6 K/mm3 (0.1-0.6); Monocytes Percent Auto 6.4 % (2.6-8.5); Neutrophils Absolute Auto 5.8 K/mm3 (1.3-6.7); Neutrophils Percent Auto 67.8 % (45.5-73.1); Platelet Count Result 223 k/mm3 (150-375); Red Blood Count 4.83 M/mm3 (4.2-5.4); Red Cell Distribution Width 14.8 % (11.5-14.5); White Blood Count 8.6 K/mm3 (4.5-10.0)
[2024-09-04 21:14] LABS: Hypochromasia 1+; Platelet Estimate Adequate (Adequate); Schistocytes None Seen
[2024-09-04 21:52] LABS: Alanine Aminotransferase 27 U/L (6-35); Albumin Level 3.3 g/dL (3.5-5.1); Alkaline Phosphatase 195 U/L (38-126); Anion Gap 10 mmol/L (4-12); Aspartate Amino Transferase 26 U/L (14-36); Bilirubin,Total 0.3 mg/dL (0.2-1.3); Blood Urea Nitrogen 7 mg/dL (7-17); Calcium 8.8 mg/dL (8.4-10.2); Carbon Dioxide 17 mmol/L (22-30); Chloride 107 mmol/L (98-107); Estimated Glomerular Filt Rate > 60; Glucose 103 mg/dL (65-110); Potassium 3.9 mmol/L (3.4-5.0); Sodium 134 mmol/L (137-145); Total Protein 6.6 g/dL (6.3-8.2); Uric Acid 4.9 mg/dL (2.5-7.5)
== END 2024-09-20 07:10 | disposition home or self-care (01) ==
LOC: ANHOBOP 20:03
PROVIDERS: Visit Provider Obstetrics & Gynecology
DX: O36.8130 Decreased fetal movements, third trimester, not applicable or unspecified (principal); Z3A.30 30 weeks gestation of pregnancy; O26.899 Other specified pregnancy related conditions, unspecified trimester; R03.0 Elevated blood-pressure reading, without diagnosis of hypertension; Z3A.38 38 weeks gestation of pregnancy
CPT/HCPCS: 36415; 59025; 80053; 84550; 85025

== ENCOUNTER 2024-09-08 05:59 | Inpatient (IN) | payer OTHER, SELFPAY ==
[2024-09-08] VITALS (72 sets, daily range): BP systolic 99–139; BP diastolic 55–86; PULSE 72–106; TEMP 36.1–36.7; O2SAT 95–100; BMI 52.9
--- OUTSIDE RECORDS SUMMARY | 2024-09-08 06:05 | XMS_ITS ---
Author Organization [facility] Address [address] [place] [address] Care Team Providers Care Employment Educational Coord Name Role Phone Chinyere Wild Primary Care Provider [phone] REASON FOR VISIT Vaginal dryness and feelings of depression Social History Sex Assigned At : Social History Observation Description Sex Assigned At Female Encounters Encounter Location Date Provider Diagnosis [facility] [address] [place] [address] 10/16/2023 Chinyere Wild Plan Of Treatment No Information Progress Notes * DEBBY OROPEZA DDOB: [birth year] (24 yo F)Acc No.[id number]:10/16/2023 UNLOCKED PROGRESS NOTE Progress Notes Patient: Imer RINCON DEBBY Angulo Provider: Nikki Wild, MSN, MOBILE ELECTRONICS INSTALLER, GR[employer]KE LINING-BC, [employer]-C :2000 A ge:23 Y S ex:Female Date:10/16/2023 Address:[address] [place] [id number] Subjective: * Chief Complaints: * 1 . Vaginal dryness and feelings of depression. * Medical History: Objective: * Vitals: Assessment: Plan: * Treatment: * * Electronic signature of Home Wild APRN, [id number] on 09/08/2024 at 06:05 AM CDT Sign off status: Pending * Provider: Nikki Wild, MSN, MOBILE ELECTRONICS INSTALLER, [employer]ING-BC, [employer]-C Date: 0 10/16/2023 Generated for Printing/Faxing/eTransmitting on: 0 09/08/2024 06:05 AM CDT
--- OUTSIDE RECORDS SUMMARY | 2024-09-08 06:05 | XMS_ITS | Clinical Summary ---
Author Organization [facility] Address [address] [place] [address] Phone Care Team Providers Care General Manager [employer] Cloud Name Role Phone Unavailable Primary Care Provider [...]
--- OUTSIDE RECORDS SUMMARY | 2024-09-08 06:05 | XMS_ITS | Data Portability ---
Author Organization [place] [facility] [employer], Main Office Address [address] [place] [address] Assessment Encounter Date Assessment Date Assessment LastModified [...] were reviewed and explained to the patient: [facility] diagnostic sleep study 08/04/23 sleep [...] Imaging polysomnog ant, titration study - approved [id number] 08/09/23-11/06 024 [email or web address] [facility], [address] [place] [address], [address], 4 17:23:53 polysomnog ant, diagnostic , 6 yrs or older - approved [id number] 05/24/23--2023 024 [email or web address] 25 [facility], [address] [place], [address], 4 11:17:42 Medication Orders None recorded. Patient [...] Recorded Time Plantar fasciitis of right foot [id number] 9101 Active 2019 Not Available [facility] 3 19:31:01 Sleep apnea 70319334 Active 2023 Duran Burt MD [address], [place], [address] , [employer] 4 10:45:42 Obstructiv e sleep apnea syndrome 29211156 Active 2023 Duran Burt MD [address], [place], [address] , [employer] 4 15:55:32 Notes:Medical History: Rhini tis Moderate tonsillar hypertrophy Obesity with very severe OSAHS, AHI = 47, 08/04/23 Plantar fasciitis Procedure History: None Occupational History: [employer] Problem Notes None recorded. Medical Equipment None Reported. [...] Not Available No t Available amoxicillin 875 mg-pinedaiu m clavulanate 125 mg tablet TAKE 1 TABLET BY MOUTH TWICE DAILY 05/24 completed Not Available Not Available Not Available neomycin-po lymyxin-hyd rocort 3.5 mg-10,000 unit/mL-1 % ear drops,susp SHAKE LIQUID AND INSTILL 2 DROPS IN BOTH EARS FOUR TIMES DAILY 05/24 completed Not Available Not Available Not Available Poppy 0.25 mg-0.035 mg tablet TAKE 1 TABLET BY MOUTH EVERY DAY 05/24 completed Not Available Not Available Not Available Vitals Date Recorded Heart rate Respiratory rate Provider N gi and Address Organization Details Last Updated DateTime 05/24/2023 89 /min 15 /min Duran Burt MD [address], [place], [place], [address], [employer] 05/24/2023 10:51:29 Date Recorded Body height Body mass index (BMI) Body weight Body temperature Heart rate Oxygen saturation Oxygen saturation in Arterial blood by Pulse oximetry Systolic blood pressure Diastolic blood pressure Provider Name and Address Organization Details Last Updated DateTime 4 172.72 cm 56.1 kg/m2 123651. 58 g 97.3 [degF] 89 /min 96 % 96 % 126 mm[Hg] 82 mm[Hg] Maya Barakat MA [employer] 4 10:15:50 Date Recorded Body mass index (BMI) Body height Heart rate Body weight Systolic blood pressure Diastolic blood pressure Provider Name and Address Organization Details Last Updated DateTime 1 40 kg/m2 180.34 cm 113 /min 870488. 01 g 120 mm[Hg] 90 mm[Hg] Not Available [employer] 3 19:30:55 Date Recorded Body temperature Heart rate Respiratory rate Provider Name and Address Organization Details Last Updated DateTime 08/08/2023 97.2 [degF] 83 /min 15 /min Duran Burt MD [address], [address], [place], [address], [employer] [facility] [employer] 08/08/2023 16:03:25 Date Recorded Body height Body mass index (BMI) Body weight Heart rate Oxygen saturation Oxygen saturation in Arterial blood by Pulse oximetry Systolic blood pressure Diastolic blood pressure Provider Name and Address Organization Details Last Updated DateTime 4 172.72 cm 56.1 kg/m2 166420. 58 g 83 /min 98 % 98 % 118 mm[Hg] 70 mm[Hg] Jaciel Pacheco CMA [employer] [facility] [employer] 15:42:02 Social History Question Answer Notes LastModified by Organizat ion Details LastModified Time Tobacco Smoking Status Never Smoker TAYLOR Calles, [employer] [facility] [employer] 05/24/2023 10:18:37 What Is Your Level Of Caffeine Consumption? [...] not available 05/24/2023 Where Do You Live? [facility] Information not available 05/24/2023 Do You Have [...] Information no t available 05/24/2023 Do You Use Sunscreen Routinely? No Information not available 05/24/2023 Have You Recently Traveled Abroad? No Information not available 05/24/2023 Have You Used IV Drugs? No Information not available 05/24/2023 Do You Have Any Dietary Restrictions? No Information not available 05/24/2023 Sex: Unknown Functional Status Question Answer Note LastModified by Organizat ion Details LastModified Time Do you use any illicit or recreational drugs? Yes Rarely Information not available 05/24/2023 Do you or have you ever used any other forms of tobacco or nicotine? No Information not available 05/24/2023 What is your level of alcohol consumption? Occasional Information not available 05/24/2023 Have you been exposed to chemicals or toxins? Not that aware of Information not available 05/24/2023 What is your exercise level? Moderate Information not available 05/24/2023 Mental Status Question Answer Note LastModified by Organization D etails LastModified Time Do you feel stressed (tense, restless, nervous, or anxious, or unable to sleep at night)? [id number] Information not available 05/24/2023 Family History Relationship Description Onset Age of [...] SNOMED-CT Code Diagnosis ICD10 Code Diagnosis Note [id number] [facility] [place] [address] [place] [address] 07/26/2020 00:00:00 07/26/2020 14:58:30 [id number] Duran Burt MD [facility] [address] [address] 05/24/2023 09:48:57 05/31/2023 10:08:03 Sleep apnea 33314654 G47.30 G47.33 G47.36 G47.61 [id number] Duran Burt MD [facility] [address] [address] 08/08/2023 15:32:09 08/09/2023 09:02:51 Obstructive sleep apnea syndrome 73383367 G47.33 G47.36 G47.61 Health Concerns Section Related Observation LastModified by Organization Detai ls LastModified Time None Recorded Concern Status LastModified by Organization Details LastModified Time None Recorded Advance Directives Directive None Recorded Payers Encounter Date Sequence Insurance Name Policy Number Policy Pablo Covered Member ID Pablo Member ID Guarantor Name 05/24/2023 1 [facility] (MEDICAID REPLACEMENT - HMO) [id number] Amissa Koroma [id number] Amissa D Koroma 08/08/2023 1 [facility] (MEDICAID REPLACEMENT - HMO) [id number] Amissa Koorma [id number] Amissa D Koroma Notes Date Note [...] moderate chance of dozing. Duran Burt MD [address] [place] [address], [phone], [facility] [employer] 05/24/2023 10:51:40 08/08/2023 text/html Primary care/Ref erring provider: YUMIKO Hernandez During the [facility] diagnostic sleep study on 08/04/23, [...] high chance of dozing. Duran Burt MD [address] [place] [address], [facility] [address], [place], [address], [place] [facility] 08/08/2023 16:05:03 OBGyn Episode No OBEpisode recorded.
--- OUTSIDE RECORDS SUMMARY | 2024-09-08 06:05 | XMS_ITS | Patient Health Record ---
Author Organization Replaced by [facility] Address [address] [place] [address] Care Team Providers Care Senior Oracle So[employer] Developer Name Role Phone Chinyere Wild Primary Care Provider [phone] Beth Meyer Unavailable [phone] Yeimi Gaxiola Unavailable [phone] Allergies No Known Allergies Results Component Value Reference Range Notes NuSwab Vaginitis Plus (VG+) (942850) Reviewed date:01/29/2024 08:05:25 AM Interpretation:Abnormal Performing Lab:[facility], [address] [place] [address], Phone - [phone], Director - Rosalia Notes/Report: Test(s) 580615- Atopobium vaginae; 025360- BVAB 2; 064525- Megasphaera 1 was developed and its performance characteristics determined by [employer]. It has not been cleared or approved by the Food and Drug Administration. Test(s) 942831-Zhkolop albicans, AJAY; 330095-Ojqkfmj glabrata, AJAY was developed and its performance [...] Notes/Report: Test, Urine pos Negative - Negative Reason For Referral No Information Medications Medication SIG (Take, Route, Frequency, Duration) Notes Start Date End Date Status Omeprazole 20 MG TAKE 1 CAPSULE BY [facility] EVERY DAY 30 MINUTES BEFORE BREAKFAST for [...] Status Risk Notes Problem Morbid obesity (disorder) (979830612) Morbid (severe) obesity due to excess calories (E66.01) Active confirmed Problem Irregular menstrual cycle (N92.6) Active confirmed Problem Acid reflux (996301755) Acid reflux (K21.9) Active confirmed Vital Signs Heart Rate 90 /min 01/23/2024 Respiratory Rate 18 /min 01/23/2024 Blood pressure diastolic 78 mm Hg 01/23/2024 Oximetry 98 % 01/23/2024 Height 69 in 01/23/2024 Blood pressure systolic 134 mm Hg 01/23/2024 Weight 365 lbs 01/23/2024 BMI 53.9 kg/m2 01/23/2024 Encounters Encounter Location Date Provider Diagnosis [address] [place] [address] 01/23/2024 Yeimi Gaxiola Possible Z32.00 ; Nutritional counseling Z71.3 and Vaginitis N76.[address] [address] 10/23/2023 Beth Asencioyanelyfilibertoeun [address] [address] 01/28/2024 Yeimi Gaxiola [address] [address] 01/29/2024 Yeimi Gaxiola Chlamydia A74.9 and Vaginitis N76.0 Assessments Encounter Date Diagnosis (ICD Code) Assessment Notes Treatment Notes Treatment Clinical Notes Section Notes 01/23/2024 Possible (ICD-10 - Z32.00) 01/23/2024 Nutritional counseling (ICD-10 - Z71.3) 01/29/2024 Vaginitis (ICD-10 - N76.0) 01/29/2024 Chlamydia (ICD-10 - A74.9) 01/23/2024 Vaginitis (ICD-10 - N76.0) Plan Of Treatment No Information Insurance Providers Payer Name Payer Address Payer Phone Subscriber Number Group Number Insured Name Patient Relationship to Insured Coverage Start Date Coverage End Date [address] [address] [id number] DEBBY OROPEZA Self - patient is the insured 9 Medical (General) History Medical History History ICD Code cramps headache nausea upper abdominal pain (RUQ) lower abdominal pain (RLQ) Surgical History Surgery Date(Month/Year) Hospitalization History Reason Date(Month/Year)
--- NOTE | 2024-09-08 06:49 | LDADM ---
This patient, William Koroma, was admitted to Labor/Delivery/Recovery 104 on 09/08/24 at 05:59. Plans for labor, pain management and were discussed with patient. Patient/family oriented to hospital policies and general routines including ID bracelet, bed and alarms, visiting hours, pain management, procedures, bathroom and other care routines, personal items, smoking policy, room service/diet and guest tray routines, security routines, and visiting hours. Patient/Family are encouraged to report perceived risks to care and to ask questions if they do not understand what they are told or what they should do. See OBIX for further documentation.
[2024-09-08 07:35] LABS: Basophils Percent Auto 0.3 % (0.2-1.2); Eosinophils Absolute Auto 0.1 K/mm3 (0-0.3); Hematocrit 34.8 % (37.0-47.0); Hemoglobin 10.9 g/dL (12.0-15.0); Immature Granulocyte Absolute 0.03 K/mm3 (0.00-0.031); Immature Granulocyte Percent A 0.3 % (0-0.5); Lymphocytes Absolute Auto 2.27 K/mm3 (0.9-3.2); Lymphocytes Percent Auto 26.2 % (18.3-44.2); Mean Corpuscular HGB Conc 31.3 g/dl (32-36); Mean Corpuscular Volume 76.7 fl (80-100); Mean Platelet Volume 12.5 fl (7.4-10.4); Monocytes Absolute Auto 0.6 K/mm3 (0.1-0.6); Monocytes Percent Auto 6.6 % (2.6-8.5); Neutrophils Absolute Auto 5.7 K/mm3 (1.3-6.7); Neutrophils Percent Auto 65.6 % (45.5-73.1); Platelet Count Result 207 k/mm3 (150-375); Red Blood Count 4.54 M/mm3 (4.2-5.4); Red Cell Distribution Width 14.6 % (11.5-14.5); White Blood Count 8.7 K/mm3 (4.5-10.0)
[2024-09-08] MEDS: miSOPROStol 25 MCG TABLET 50 MCG BUCCAL ×3 (08:07→17:25)
[2024-09-08 08:36] LABS: Syphilis IgG/IgM Antibody Non-Reactive (Nonreactive)
[2024-09-08 11:22] LABS: HIV 1/2 Ab P24 Ag Result Negative (Negative)
--- NOTE | 2024-09-08 12:32 | PM.IMHP ---
H&P: HPI History of Present Illness Date/Time: 09/08/24 0802 Chief Complaint: chronic hypertension Narrative: Patient is a 24 year old who presents at 38 weeks gestation for medical induction of labor, indicated for chronic hypertension. She denies headaches, vision changes, chest pain, dyspnea, RUQ pain or epigastric pain. Labwork and testing has been normal. Her is otherwise complicated with obesity, BMI 55. She reports good movement. Denies strong contractions, leakage of fluid or vaginal bleeding. Review of Systems Review of Systems: All systems reviewed & are unremarkable except as noted in HPI and below PMFSH Past Medical History Medical History GERD (gastroesophageal reflux disease) and not yet delivered Morbid obesity Anxiety and depression COVID-19 04/23 Strep pharyngitis Family History Family History Other Unknown family medical history Social History Social History Smoking status: Never smoker Alcohol intake: current Alcohol use details: rare social Substance use type: does not use Do You Feel Safe in your Home?: Yes Lack of Transportation: No Lack of Food: Never True Current Housing: I Have Housing Concerned About Future Housing: No Difficulty Paying Gas/Electric Bills: No Difficulty Paying for Meds: No Currently Unemployed: No Education: High School Diploma/GED Difficulty w/ Childcare or Family Care: No Living arrangements: with family Gender identity (if verbalized by the patient): Female Meds Home Medications and Allergies Home Medications ?Medication ?Instructions ?Recorded ?Confirmed ?Type omeprazole 20 mg capsule,delayed 20 mg PO BID #30 caps 06/06/24 09/08/24 Rx release vit no.95-ferrous 1 tablet PO DAILY 09/03/24 09/08/24 History fumarate 28 mg-folic acid 800 mcg tablet () sertraline 25 mg tablet 25 mg PO Q24H 09/08/24 09/08/24 History Allergies Allergy/AdvReac Type Severity Reaction Status Date / Time No Known Allergies Allergy Verified 09/08/24 07:02 Vital Signs Vital Signs - 24 hr 09/08/24 06:49 09/08/24 07:05 09/08/24 07:58 Temperature 96.9 F L Pulse Rate 88 Blood Pressure 111/63 Oxygen Delivery Room Air 09/08/24 08:01 09/08/24 08:16 09/08/24 08:32 Temperature Pulse Rate 97 92 89 Blood Pressure 99/69 L 123/78 124/65 Oxygen Delivery 09/08/24 08:46 09/08/24 09:01 09/08/24 09:16 Temperature Pulse Rate 89 89 91 Blood Pressure 118/71 127/69 117/64 Oxygen Delivery 09/08/24 09:31 09/08/24 09:46 09/08/24 10:01 Temperature Pulse Rate 75 80 85 Blood Pressure 123/74 121/75 133/72 Oxygen Delivery 09/08/24 10:16 09/08/24 10:31 09/08/24 10:46 Temperature Pulse Rate 98 83 92 Blood Pressure 133/79 139/75 127/68 Oxygen Delivery 09/08/24 11:01 09/08/24 11:16 09/08/24 11:47 Temperature Pulse Rate 83 81 79 Blood Pressure 119/76 125/79 105/57 L Oxygen Delivery 09/08/24 12:01 09/08/24 12:12 09/08/24 12:16 Temperature 97 F L Pulse Rate 93 77 Blood Pressure 122/70 129/79 Oxygen Delivery 09/08/24 12:31 Temperature Pulse Rate 77 Blood Pressure 136/74 Oxygen Delivery Exam Const: General: comfortable and no acute distress HENMT: Mouth: Yes moist mucous membranes Eyes: General: appearance normal, both eyes and all related structures Resp: Effort & Inspection: normal respiratory effort Cardio: Rate: regular rate GI: Other: gravid Skin: General skin exam: normal color Extrem: General: normal to inspection Psych: Mental Status: mental status grossly normal H&P: Results Labs Labs: Short CBC 09/08/24 Range/Units 06:32 WBC 8.7 (4.5-10.0) K/mm3 Hgb 10.9 L (12.0-15.0) g/dL Hct 34.8 L (37.0-47.0) % Plt Count 207 (150-375) k/mm3 Assessment and Plan Assessment and plan (1) Chronic hypertension affecting : Code(s): O10.919 - Unspecified pre-existing hypertension complicating , unspecified trimester Status: Acute Assessment and Plan: - asymptomatic - BP normotensive since admission - labs wnl - induction per cytotec protocol - FHR category I - anticipate
--- NOTE | 2024-09-08 14:25 | WPDANESEPP ---
Anes - Eval Pre Procedure Procedure: Labor epidural Date/Time: 09/08/24 14:25 Surgeon: Baldev Preop Diagnosis: Abdominal pain with contractions Pre Op Diagnosis: IOL Patient Data Age: 24 Gender: F Height: 1.73 m Weight: 158 kg Last Vital Signs Temp 97 F L 09/08/24 12:12 Pulse 79 09/08/24 14:16 BP 118/74 09/08/24 14:16 Pulse Ox 98 09/08/24 14:20 O2 Del Method Room Air 09/08/24 06:49 Allergies Allergy/AdvReac Type Severity Reaction Status Date / Time No Known Allergies Allergy Verified 09/08/24 07:02 Home Medications ?Medication ?Instructions ?Recorded ?Confirmed ?Type omeprazole 20 mg capsule,delayed 20 mg PO BID #30 caps 06/06/24 09/08/24 Rx release vit no.95-ferrous 1 tablet PO DAILY 09/03/24 09/08/24 History fumarate 28 mg-folic acid 800 mcg tablet () sertraline 25 mg tablet 25 mg PO Q24H 09/08/24 09/08/24 History Laboratory Tests 09/08/24 06:32 WBC 8.7 K/mm3 (4.5-10.0) RBC 4.54 M/mm3 (4.2-5.4) Hgb 10.9 L g/dL (12.0-15.0) Hct 34.8 L % (37.0-47.0) MCV 76.7 L fl (80-100) MCH 24.0 L pg (26-34) MCHC 31.3 L g/dl (32-36) RDW 14.6 H % (11.5-14.5) Plt Count 207 k/mm3 (150-375) MPV 12.5 H fl (7.4-10.4) Immature Gran % (Auto) 0.3 % (0-0.5) Neut % (Auto) 65.6 % (45.5-73.1) Lymph % (Auto) 26.2 % (18.3-44.2) [place] % (Auto) 6.6 % (2.6-8.5) Eos % (Auto) 1.0 % (0-4.4) Baso % (Auto) 0.3 % (0.2-1.2) Lymph # (Auto) 2.27 K/mm3 (0.9-3.2) [place] # (Auto) 0.6 K/mm3 (0.1-0.6) Eos # (Auto) 0.1 K/mm3 (0-0.3) Baso # (Auto) 0.0 K/mm3 (0.0-0.1) Abs Immat Gran (auto) 0.03 K/mm3 (0.00-0.031) Absolute Neuts (auto) 5.7 K/mm3 (1.3-6.7) Absolute Nucleated RBC 0.000 K/mm3 (0.0-0.012) Nucleated RBC % 0.0 % (0.0-0.2) Syphilis IgG/IgM Ab Non-reactive (Nonreactive) HIV 1&2 Ab/P24 Ag 4thGn Negative (Negative) Blood Type O Positive Antibody Screen Negative : gestational age HCG: positive Patient hx anesthesia problems: none Family hx anesthesia problems: none Results Review: All pre-operative results and documents have been reviewed as part of the pre-operative evaluation. [facility] Past Medical History Medical History GERD (gastroesophageal reflux disease) and not yet delivered Morbid obesity Anxiety and depression COVID-19 04/23 Strep pharyngitis Family History Family History Other Unknown family medical history Social History Social History Smoking status: Never smoker Alcohol intake: current Alcohol use details: rare social Substance use type: does not use Do You Feel Safe in your Home?: Yes Lack of Transportation: No Lack of Food: Never True Current Housing: I Have Housing Concerned About Future Housing: No Difficulty Paying Gas/Electric Bills: No Difficulty Paying for Meds: No Currently Unemployed: No Education: High School Diploma/GED Difficulty w/ Childcare or Family Care: No Living arrangements: with family Gender identity (if verbalized by the patient): Female Exam Day of Procedure 09/08/24 14:25 Patient weight: super morbidly obese
--- NOTE | 2024-09-08 14:30 | PC.NURSE ---
Dr. Crews called per patient request at 1430. Pt. is wanting to be off the monitor and ambulate hallways. Order received for intermittent monitoring for 20 minutes hourly until on pitocin and/or membranes are ruptured.
[2024-09-08] MEDS: LACTATED RINGERS 500 ML 999 ML IV CONT (21:49)
[2024-09-08] MEDS: fentaNYL CITRATE INJ (*CRX) 100 MCG/2 ML VIAL 50 MCG IV PUSH (22:22)
[2024-09-09] VITALS (153 sets, daily range): BP systolic 77–145; BP diastolic 21–102; PULSE 64–255; RESP 14–23; TEMP 35.9–36.7; O2SAT 89–100
[2024-09-09] MEDS: fentaNYL CITRATE INJ (*CRX) 100 MCG/2 ML VIAL IV PUSH ×2 (00:07→06:26)
[2024-09-09] MEDS: miSOPROStol 25 MCG TABLET 50 MCG (01:30)
[2024-09-09] MEDS: LACTATED RINGERS 1,000 ML 125 ML IV CONT (06:41)
[2024-09-09] MEDS: OXYTOCIN 30 UNITS/NS 500 ML 30 UNITS/500 ML BAG IV CONT (06:41)
--- NOTE | 2024-09-09 09:26 | PM.OBPNLAB ---
Pain Control Date/time seen: 09/09/24 09:26 Pelvic Exam Dilation (cm): 3 Effacement (%): 50 station: -3 Amniotic membrane status: Intact Comments: BSUS confirms breech presentation Status status: Category l Assessment and Plan Pitocin rate (mU/min): 0 Comments: BSUS confirmed breech presentation. Membranes intact, SV 3/50/-3. Discussed risks and benefits of external cephalic version vs primary c section for breech presentation including risk of placental abruption and emergent c section with ECV. Risks of c section include bleeding, infection and injury to surrounding structures. Patient desires to proceed with ECV. Patient to receive epidural, OR on standby for c section if unsuccessful.
--- NOTE | 2024-09-09 09:29 | WPDHPUPDATE1 ---
History and Physical Update Update Date/Time: 09/09/24 09:29 History and Physical has been reviewed, including an updated exam of the patient. presentation breech, will proceed with external cephalic version. Risks, benefits, and alternatives have been discussed and questions answered. Patient agrees to proceed with procedure.
[2024-09-09] MEDS: TERBUTALINE SULFATE 1 MG/ML VIAL 0.25 MG SUB-Q (09:50)
--- NOTE | 2024-09-09 10:14 | WPDHPUPDATE1 ---
History and Physical Update Update Date/Time: 09/09/24 10:14 History and Physical has been reviewed, including an updated exam of the patient. There are NO changes in the patient's condition. ECV unsuccessful. Will proceed with primary c section. Risks, benefits, and alternatives have been discussed and questions answered. Patient agrees to proceed with procedure.
[2024-09-09] MEDS: ACETAMINOPHEN 500 MG TABLET 1000 MG PO ×3 (10:23→23:47)
[2024-09-09] MEDS: FAMOTIDINE 20 MG/2 ML VIAL IV PUSH (10:29)
[2024-09-09] MEDS: ONDANSETRON INJ 4 MG/2 ML VIAL IV PUSH ×2 (10:29→16:32)
[2024-09-09] MEDS: OXYTOCIN 30 UNITS/NS 500 ML 30 UNITS/500 ML BAG 125 UNITS IV CONT (12:30)
--- NOTE | 2024-09-09 13:05 | PC.NURSE ---
Pt. still c/o of pain at rest. Order received from Traci Bird CRNA to give up to 2 doses of 50 mcg IV fentanyl then reevaluate if pt. still having pain.
[2024-09-09] MEDS: fentaNYL CITRATE INJ (*CRX) 100 MCG/2 ML VIAL 50 MCG IV PUSH (13:11)
--- NOTE | 2024-09-09 13:35 | W.PM.OBCSD ---
OB - Delivery Note Procedure Delivery date: 09/09/24 Pre-op diagnosis: Breech Presentation (s/p failed ECV) and Chronic Hypertension Post-op Diagnosis: Same Induction method: Per Misoprostol Protocol Delivery monitor: External FHT Prior to decision for section, ACOG/SMFM labor guidelines were considered and discussed with the patient and staff. Decision made to proceed with the section.: Yes Procedure Performed: Primary Primary branch: low cervical, transverse Surgeon: Brian Crews MD Anesthesia type: Epidural Description of Procedure/Findings: The patient was taken to the operating room where she was placed in the dorsal supine position with a leftward tilt. The electronic monitor was placed and heart rate was found to be reassuring. She was prepped and draped in the normal sterile fashion, and anesthesia was checked to be adequate. A Pfannenstiel skin incision was made with the scalpel and carried through to the underlying layer of fascia with the scalpel. The fascia was incised in the midline and the incision extended laterally with the Hernandez scissors. The superior aspect of the fascial incision was then grasped with Jean Paul clamps, elevated, and the underlying rectus muscles dissected off bluntly and with Hernandez scissors. Attention was then turned to the inferior aspect of the fascial incision, which in similar fashion was grasped, elevated, and the rectus muscles dissected off.? The rectus muscles were then in the midline, and the peritoneum entered bluntly. The peritoneal incision was extended superiorly and inferiorly with good visualization of the bladder. With the bladder blade providing retraction and visualization, the lower uterine segment was incised in a transverse fashion with the scalpel. The uterine incision was then extended laterally. The bladder blade was removed and the 's breech was elevated and delivered atraumatically. The remainder of the was then delivered without difficulty, and the 's nose and mouth were suctioned with the bulb suction. The umbilical cord was doubly clamped and cut. The was then handed off to the waiting nursing staff. Specimens then obtained as listed below. The placenta was then removed manually and the uterus was exteriorized and cleared of all clots and debris. The uterine incision was repaired with 0-Monocryl in a running, interlocked fashion. The posterior cul-de-sac was manually cleared of all clots and debris. The uterus was returned to the abdomen. The gutters were then manually cleared of all clots and debris.? The uterine incision was visualized to be hemostatic. The fascia was reapproximated with 0-Vicryl in a running fashion. The subcutaneous tissues were irrigated with warmed normal saline, and hemostasis was assured. The subcutaneous tissue was greater than 2 cm and closed in a running fashion with 2-0 plain gut suture.? The skin was closed with 4-0 monocryl in a running subcuticular stitch. Fundal pressure was applied to express remaining intrauterine clots and debris. The patient tolerated the procedure well. Sponge, lap, and needle counts were correct times three per nursing. The patient was taken to the recovery room in stable condition. Estimated Blood Loss: 810 Pathology: None sent Complications: No immediate complications Condition: Stable Disposition: [place] Baby Date of : 09/09/24 Time of : 11:08 Gestational Age by Date: 39 Infant gender: Male Weight (pounds): 8 Weight (ounces): 11 presentation: maria alejandra breech position: Right Sacrum Anterior Placenta delivery description: Expressed
--- NOTE | 2024-09-09 15:45 | OBPPTRN ---
Patient transferred to post room #277 via bed. Support person present. Oriented to unit, room, information board, rooming in, admission packet and security measures. Patient verbalizes understanding.
[2024-09-09] MEDS: LIDOCAINE 5% PATCH 1 PATCH TRANSDERM (16:32)
--- NOTE | 2024-09-09 16:42 | PC.NURSE ---
[id number]. Introductions were made, then consulted with patient to assess needs related to . Discussed with mother her plans to feed her infant and the experience so far. Infant in level 2 nursery at this time. Breast pump provided due to in lavel 2 nursery. Instructions given on cleaning, care, usage, that there should be no pain, pumping schedule for milk production, collection, and storage of human milk. Patient was assessed for correct placement, flange size, to pump for comfort and nipple stretching/stimulation for adequate milk production every 3 hours (8 times in 24 hours) 1-2 times at night. Parents are encouraged to record the pumping schedule on the feeding sheet.?Mother voiced understanding of the education shared along with mom/baby guide and the pump measurement, flange fit handout for additional resource info. Resources provided for inpatient and outpatient services with the feeding sheet, mom/baby guide, and name/number written on the communication board. Mother voiced understanding of information and will call if there is a request for assistance. Reported to the Primary RN
[2024-09-09] MEDS: DOCUSATE SODIUM 100 MG CAPSULE PO (17:44)
[2024-09-09] MEDS: SIMETHICONE 80 MG TAB.CHEW PO (17:44)
[2024-09-09] MEDS: KETOROLAC 15 MG/ML VIAL (*BKC) IV PUSH ×2 (17:44→23:47)
[2024-09-09] MEDS: DEXTROSE 5%/0.45% SOD CHL 1,000 ML 125 ML IV CONT (17:47)
[2024-09-09] MEDS: oxyCODONE HCL (*CRX) 5 MG TAB IR PO (22:39)
[2024-09-09] MEDS: LORATADINE 10 MG TABLET PO (23:47)
[2024-09-10] VITALS: BP 119/67; PULSE 67; RESP 18; TEMP 36.4; O2SAT 98
[2024-09-10 04:32] LABS: Basophils Percent Auto 0.4 % (0.2-1.2); Eosinophils Absolute Auto 0.1 K/mm3 (0-0.3); Eosinophils Percent Auto 1.2 % (0-4.4); Hematocrit 30.4 % (37.0-47.0); Hemoglobin 9.5 g/dL (12.0-15.0); Immature Granulocyte Absolute 0.02 K/mm3 (0.00-0.031); Immature Granulocyte Percent A 0.3 % (0-0.5); Lymphocytes Absolute Auto 2.04 K/mm3 (0.9-3.2); Lymphocytes Percent Auto 26.7 % (18.3-44.2); Mean Corpuscular HGB Conc 31.3 g/dl (32-36); Mean Corpuscular Hemoglobin 24.3 pg (26-34); Mean Corpuscular Volume 77.7 fl (80-100); Mean Platelet Volume 12.2 fl (7.4-10.4); Monocytes Absolute Auto 0.5 K/mm3 (0.1-0.6); Monocytes Percent Auto 6.9 % (2.6-8.5); Neutrophils Absolute Auto 4.9 K/mm3 (1.3-6.7); Neutrophils Percent Auto 64.5 % (45.5-73.1); Platelet Count Result 166 k/mm3 (150-375); Red Blood Count 3.91 M/mm3 (4.2-5.4); Red Cell Distribution Width 14.7 % (11.5-14.5); White Blood Count 7.7 K/mm3 (4.5-10.0)
[2024-09-10 04:49] VITALS: BP 108/69; PULSE 70; RESP 16; TEMP 36.6; O2SAT 99
[2024-09-10] MEDS: ACETAMINOPHEN 500 MG TABLET 1000 MG PO ×3 (06:21→18:31)
[2024-09-10] MEDS: KETOROLAC 15 MG/ML VIAL (*BKC) IV PUSH (06:21)
--- NOTE | 2024-09-10 07:38 | PM.OBPNVD ---
OB - PN: Subj Subjective Date/time seen: 09/10/24 07:38 Interval history: pp day 1 section resting baby level 2 OB - PN: Obj Data Labs 09/10/24 04:19 Labs: Laboratory Results - last 24 hr 09/10/24 04:19 WBC 7.7 RBC 3.91 L Hgb 9.5 L Hct 30.4 L MCV 77.7 L MCH 24.3 L MCHC 31.3 L RDW 14.7 H Plt Count 166 MPV 12.2 H Immature Gran % (Auto) 0.3 Neut % (Auto) 64.5 Lymph % (Auto) 26.7 [place] % (Auto) 6.9 Eos % (Auto) 1.2 Baso % (Auto) 0.4 Lymph # (Auto) 2.04 [place] # (Auto) 0.5 Eos # (Auto) 0.1 Baso # (Auto) 0.0 Abs Immat Gran (auto) 0.02 Absolute Neuts (auto) 4.9 Absolute Nucleated RBC 0.000 Nucleated RBC % 0.0 OB - PN A/P Plan day: 1 Time Spent With Patient Time: Total time spent is greater than 50% in coordination of care (as documented) at patient's floor/unit and/or counseling patient: Review of Systems Review of Systems: All systems reviewed & are unremarkable except as noted in HPI and below Exam Const: General: cooperative, healthy appearing and comfortable Chest: Chest palpation & inspection: normal inspection of the chest Resp: Effort & Inspection: normal respiratory effort GI: Other: incision CDI
--- NOTE | 2024-09-10 07:55 | PC.NURSE ---
This patient visiting in first floor nursery.
[2024-09-10 09:20] VITALS: BP 126/80; PULSE 82; RESP 16; TEMP 36.4; O2SAT 100
[2024-09-10] MEDS: MULTIVIT/MIN/PREN/FOL AC/IRON TABLET 1 TAB PO (09:22)
[2024-09-10] MEDS: POLYSACCHARIDE IRON COMPLEX 150 MG CAPSULE PO ×2 (09:22→17:39)
[2024-09-10] MEDS: SIMETHICONE 80 MG TAB.CHEW PO ×3 (09:22→17:39)
[2024-09-10] MEDS: SERTRALINE HCL 25 MG TABLET PO (09:23)
[2024-09-10] MEDS: DOCUSATE SODIUM 100 MG CAPSULE PO ×2 (09:23→17:39)
--- NOTE | 2024-09-10 09:55 | PC.NURSE ---
0956. Introductions were made, then consulted with patient to assess needs related to . remains in level 2 nursery, mom pumping at this time every 3 hours. No questions at this time.
--- NOTE | 2024-09-10 12:10 | WPDANLDPN2 ---
Anes-Prog Note L&D Date/Time: 09/10/24 12:10 Comfortable throughout: section Neuraxial method: epidural Epidural/Spinal procedure site: clean & non-tender Neuro status: Neuro function grossly intact. Cardiovascular status: normal Respiratory status: normal Airway patency: baseline Mental status: baseline Post-Op hydration status: normal Vital Signs: Last Vital Signs Temp 36.4 C 09/10/24 09:20 Pulse 82 09/10/24 09:20 Resp 16 09/10/24 09:20 BP 126/80 09/10/24 09:20 Pulse Ox 100 09/10/24 09:20 O2 Del Method Room Air 09/10/24 07:45 Pain score (VAS): 3/10 I/O: Intake & Output 09/09/24 09/10/24 09/10/24 23:59 07:59 15:59 Intake Total 500 600 240 Output Total 325 1200 Balance 175 -600 240 Post-procedural complaints: none Patient feedback: Patient satisfied with anesthetic care.
--- NOTE | 2024-09-10 12:10 | WPDANLDNPN2 ---
Anes-Prog Note L&D-Neuraxial Date/Time: 09/10/24 12:10 Neuraxial medications: epidural PF morphine Opiod-related complaints: pruritis moderate, treatment effective Patient feedback: Patient satisfied with post-operative pain management.
[2024-09-10] MEDS: IBUPROFEN 600 MG TABLET PO ×2 (12:30→18:31)
[2024-09-10 20:00] VITALS: BP 132/66; PULSE 82; RESP 16; TEMP 36.9; O2SAT 98
[2024-09-10] MEDS: oxyCODONE HCL (*CRX) 5 MG TAB IR PO (21:17)
[2024-09-11] MEDS: ACETAMINOPHEN 500 MG TABLET 1000 MG PO ×4 (00:02→18:29)
[2024-09-11] MEDS: IBUPROFEN 600 MG TABLET PO ×4 (00:02→18:29)
[2024-09-11 00:47] VITALS: BP 110/72
[2024-09-11] MEDS: oxyCODONE HCL (*CRX) 5 MG TAB IR PO (03:05)
[2024-09-11 04:02] VITALS: BP 122/79
--- NOTE | 2024-09-11 06:48 | P.PNOB_ITS ---
OB - PN: Subj Subjective Date/time seen: 09/11/24 06:48 Interval history: pp day 2 section resting baby in room OB - PN: Obj Data Labs 09/10/24 04:19 OB - PN A/P Plan day: 2 Plan: routine care Time Spent With Patient Time: Total time spent is greater than 50% in coordination of care (as documented) at patient's floor/unit and/or counseling patient: Review of Systems 2 Review of Systems: All systems reviewed & are unremarkable except as noted in HPI and below Exam 2 Const: General: cooperative and healthy appearing Chest: Chest palpation & inspection: normal inspection of the chest Resp: Effort & Inspection: normal respiratory effort GI: Other: incision CDI
[2024-09-11 08:15] VITALS: BP 122/72; PULSE 74; RESP 16; TEMP 36.5; O2SAT 98
--- NOTE | 2024-09-11 08:23 | PC.NURSE ---
Introductions were made, then consulted with patient to assess needs related to . Mother states that she is pumping independently and denies questions at this time. Mother is not placing infant to breast - she is exclusively pumping and bottle feeding . She is using formula supplementation per preference. Mother states that she is getting drops of colostrum when she pumps and she is able to give infant her pumped colostrum in addition to Enfamil supplementation. Mother expressed the need for obtaining a breast pump for home. This RN was able to provide a [employer] Pump in Style breast pump utilizing patients insurance. Instructions given on cleaning, care, usage, that there should be no pain, pumping schedule for milk production, collection, and storage of human milk. Patient was assessed for correct placement, flange size, to pump for comfort and nipple stretching/stimulation for adequate milk production every 3 hours (8 times in 24 hours) 1-2 times at night. Parents are encouraged to record the pumping schedule on the feeding sheet.?
[2024-09-11] MEDS: SERTRALINE HCL 25 MG TABLET PO (09:17)
[2024-09-11] MEDS: POLYSACCHARIDE IRON COMPLEX 150 MG CAPSULE PO ×2 (09:17→17:12)
[2024-09-11] MEDS: MULTIVIT/MIN/PREN/FOL AC/IRON TABLET 1 TAB PO (09:18)
[2024-09-11] MEDS: SIMETHICONE 80 MG TAB.CHEW PO ×3 (09:18→17:12)
[2024-09-11] MEDS: LIDOCAINE 5% PATCH 1 PATCH TRANSDERM (09:18)
[2024-09-11] MEDS: DOCUSATE SODIUM 100 MG CAPSULE PO (17:12)
[2024-09-11 20:11] VITALS: BP 129/79; PULSE 73; RESP 19; TEMP 36.3; O2SAT 98
[2024-09-12] VITALS: BP 107/72
[2024-09-12] MEDS: IBUPROFEN 600 MG TABLET PO ×3 (00:08→13:36)
[2024-09-12] MEDS: ACETAMINOPHEN 500 MG TABLET 1000 MG PO ×3 (00:08→13:36)
[2024-09-12] MEDS: oxyCODONE HCL (*CRX) 5 MG TAB IR PO (00:08)
[2024-09-12 00:15] VITALS: BP 107/72
[2024-09-12 04:00] VITALS: BP 125/76
[2024-09-12] MEDS: SIMETHICONE 80 MG TAB.CHEW PO ×2 (06:41→13:36)
[2024-09-12] MEDS: SERTRALINE HCL 25 MG TABLET PO (06:42)
[2024-09-12] MEDS: DOCUSATE SODIUM 100 MG CAPSULE PO (06:42)
[2024-09-12] MEDS: POLYSACCHARIDE IRON COMPLEX 150 MG CAPSULE PO (06:42)
[2024-09-12] MEDS: MULTIVIT/MIN/PREN/FOL AC/IRON TABLET 1 TAB PO (06:42)
--- NOTE | 2024-09-12 07:33 | P.PNOB_ITS ---
OB - PN: Subj Subjective Date/time seen: 09/12/24 07:33 Interval history: pp day 3cesarean section resting baby in room plan d/c home OB - PN: Obj Data Labs 09/10/24 04:19 OB - PN A/P Plan day: 3 Plan: routine care Time Spent With Patient Time: Total time spent is greater than 50% in coordination of care (as documented) at patient's floor/unit and/or counseling patient: Review of Systems 2 Review of Systems: All systems reviewed & are unremarkable except as noted in HPI and below Exam 2 Const: General: cooperative and healthy appearing Neck: Neck: normal visual inspection Cardio: Rate: regular rate GI: Other: incision CDI
--- NOTE | 2024-09-12 07:38 | P.DS_ITS ---
DS: Admitting Diagnosis Discharge Date 09/12/24 Admitting Diagnosis IOL DS: Discharge Diagnosis Discharge Diagnosis (1) Delivery by section: Status: Acute OB - DS: Summary OB Procedures : External version OB Procedures Intrapartum: OB Procedures: : None Peripartum Data Procedures: Procedures Operation Date: 09/09/24 10:36 Actual Procedure Side Surgeon p Section Not Applicable Brian Crews MD Time Spent with Patient Time attestation: Total time spent providing and/or coordinating discharge services: Discharge Plan Discharge Attending physician on discharge: Brian Crews Consulting providers: Sloane Brennan Discharging Clinician: Sloane Brennan Patient Disposition: Home Activity: pelvic rest Diet: regular Patient Instructions: Antibiotic Form Patient Language: French Stand Alone Forms: General Discharge Information Follow-up/Referrals: Brian Crews MD [Physician] - 1 Week (gayatri-1 week) Sloane Brennan, CNM [Certified Nurse Director Of Assessment] - Discharge Medications: New oxycodone 5 mg Tablet 5 mg PO Q4H PRN (Reason: Pain Rated 4-6) Qty: 30 0RF ibuprofen 600 mg Tablet 600 mg PO Q6HR Qty: 30 0RF No Action PNV cmb#95-ferrous fumarate-FA [] 28 mg iron- 800 mcg tablet 1 tablet PO DAILY sertraline 25 mg tablet 25 mg PO Q24H omeprazole 20 mg capsule,delayed release(DR/EC) 20 mg PO BID Qty: 30 0RF Date of admission: 09/08/24 05:59 Primary Care Provider: PHYSICIAN,STEAM CLEANER Admitting Provider: Buddy De Paz Attending physician on admission: Buddy De Paz Condition: Stable
[2024-09-12 08:25] VITALS: BP 142/76; PULSE 87; RESP 18; TEMP 36.6; O2SAT 98
--- NOTE | 2024-09-12 09:45 | PC.NURSE ---
Reviewed standard discharge information with patient including milk production, mastitis, engorgement, and plugged ducts. Offered outpatient resources with [facility] referral (faxed to [place]) and Services at [place]. Patient has the Mom/Baby Guide for further education and reference for common concerns, phone numbers, and guidance on when to call the doctor. A pumping plan was added to the infant?s discharge plan. Patient states that she has no further questions or concerns regarding .???
[2024-09-15 11:56] VITALS: BP 126/84; PULSE 94; RESP 18; TEMP 36.6; O2SAT 99
--- NOTE | 2024-09-15 12:00 | PC.NURSE ---
Introductions were made, then consulted with patient to assess needs related to . Patient here for her follow up appointment and requested to assess latch. Mother works well with her infant with encouragement and education. Reviewed positioning and ear, shoulder, hip alignment, supporting the breast to facilitate a deep latch, asymmetrical latch (off-center), leading with the chin with a big, open, wide gape and body close to mother. latched optimally to the [left] breast in [cross cradle] position. Education given to the mother of how to visualize the suckling (with good rocking jaw motion), swallows (dropping of the lower jaw) and how to listen for drinking at the breast (the ka sound). Infant was [able] to maintain latch without pain to mother protecting the nipple with optimal positioning and latching. Reviewed comfort measures of healing with a warm, wet washcloth to rinse breast, then leave open to air-dry, good handwashing when or touching the breast/nipples to prevent infection. Mother voiced understanding of skin to skin, stimulating with massage touch, responsive feedings, hand expressed colostrum, talking to infant to encourage if it has been 2 -2.5 hours since the start of the last . Resources provided for inpatient and outpatient services with the feeding sheet, and the mom/baby guide. Mother voiced understanding of information.
--- NOTE | 2024-09-30 18:02 | W.PM.PROC2 ---
Procedure Note - Detailed Date of Procedure 09/09/24 Pre-op Diagnosis breech presentation Post-op Diagnosis Same Procedure Performed external cephalic version Surgeon Brian Crews MD Anesthesia Epidural Indications breech presentation Description of Procedure Patient counseled on the risks, benefits, and alternatives of the procedure.? heart rate tracing reactive prior to the procedure. Epidural anesthesia was administered in the usual fashion. Patient received 0.25mg terbutaline subQ five minutes prior to the procedure. After applying lubricant to the patient's abdomen, external cephalic version was attempted in the usual fashion, first with a forward roll and next with a backward roll. FHR was observed with a bedside ultrasound intermittently throughout the procedure. Finally, another forward roll was attempted and was unsuccessful.? FHR was noted to be normal again. The patient tolerated the procedure. Will proceed with primary c section. Estimated Blood Loss 0 Urine Output 400
== END 2024-09-12 15:37 | disposition home or self-care (01) | DRG 540 ==
LOC: ANHOB2 09-12 07:37 → ANHLDR 09-15 08:08 → ANHOB2 09-15 08:08
PROVIDERS: Advanced Practice Midwife; Admitting Provider Obstetrics & Gynecology; Visit Provider Obstetrics & Gynecology
PROC: 10D00Z1 Extraction of Products of Conception, Low, Open Approach (ICD-10-PCS; CPT 59514; principal; 2024-09-09 10:40)
DX: O10.92 Unspecified pre-existing hypertension complicating childbirth (principal); Z37.0 Single live birth; Z3A.39 39 weeks gestation of pregnancy; O32.1XX0 Maternal care for breech presentation, not applicable or unspecified
CPT/HCPCS: 36415; 59412; 85025; 86593; 86703; 86850; 86900; 86901; A9270; G0432; J1885; J2274; J2405; J2590; J3010; J3105; J7120